=== PATIENT | female | born 1960 | race Caucasian/White ===

== ENCOUNTER 2017-11-11 11:01 | Inpatient (IN) | payer MEDICAID, SELFPAY ==
[2017-11-11] MEDS: CitaloPRAM (CeleXA) 20 MG TAB PO (09:00)
[2017-11-11 11:33] LABS: BASO % 0.7 % (0.0-1.0); EOS # 0.1 10^3/uL (0.0-0.50); EOS % 1.7 % (0.0-3.0); HEMATOCRIT 44.2 % (36.0-47.0); IMMATURE GRANULOCYTE % 0.2 % (0-3.0); LYMPH # 2.4 10^3/uL (1.5-4.5); LYMPH % 40.9 % (24.0-44.0); MEAN CORPUSCULAR HEMOGLOBIN 33.6 pg (27.0-33.0); MEAN CORPUSCULAR HGB CONC 33.9 g/dl (32.0-36.5); MEAN CORPUSCULAR VOLUME 98.9 fl (80.0-96.0); MONO # 0.5 10^3/uL (0.0-0.8); MONO % 7.8 % (0.0-5.0); NEUTROPHILS # 2.9 10^3/uL (1.8-7.7); NEUTROPHILS % 48.7 % (36.0-66.0); PLATELET COUNT, AUTOMATED 255 10^3/uL (150-450); RED BLOOD COUNT 4.47 10^6/uL (4.00-5.40); RED CELL DISTRIBUTION WIDTH 11.9 % (11.5-14.5); WHITE BLOOD COUNT 5.9 10^3/uL (4.0-10.0)
[2017-11-11 12:05] LABS: ALBUMIN 3.6 GM/DL (3.2-5.2); ALBUMIN/GLOBULIN RATIO 1.06 (1.00-1.93); ALKALINE PHOSPHATASE 90 U/L (45-117); ALT/SGPT 17 U/L (12-78); ANION GAP 6 MEQ/L (8-16); AST/SGOT 19 U/L (7-37); BILIRUBIN,DIRECT 0.2 MG/DL (0.0-0.2); BILIRUBIN,TOTAL 0.7 MG/DL (0.2-1.0); BLOOD UREA NITROGEN 18 MG/DL (7-18); CALCIUM LEVEL 8.9 MG/DL (8.5-10.1); CARBON DIOXIDE LEVEL 28 MEQ/L (21-32); CHLORIDE LEVEL 110 MEQ/L (98-107); CREATININE FOR GFR 0.72 MG/DL (0.55-1.30); ETHYL ALCOHOL (ETHANOL) < 0.003 % (0.000-0.010); GLOMERULAR FILTRATION RATE > 60.0 (>51); GLUCOSE, FASTING 90 MG/DL (70-100); POTASSIUM SERUM 3.8 MEQ/L (3.5-5.1); SALICYLATE LEVEL 3.2 MG/DL (5.0-30.0); SODIUM LEVEL 144 MEQ/L (136-145)
[2017-11-11 12:10] LABS: ACETAMINOPHEN LEVEL < 2.0 UG/ML (10.0-30.0)
[2017-11-11] MEDS ORDERED: OLANZapine 5 MG TAB PO (16:45)
[2017-11-11] MEDS ORDERED: MAALOX 30 ML SUSP *UDC PO (16:45)
[2017-11-11] MEDS ORDERED: MOM 30ML SUSPENSION UDC PO (16:45)
[2017-11-11] MEDS: ACETAMINOPHEN TAB 650MG DOSE (2X325MG) PO (17:20)
[2017-11-11 17:34] LABS: APPEARANCE, URINE HAZY (CLEAR); BACTERIA, URINE AUTO 3+ (NEGATIVE); BILIRUBIN, URINE AUTO NEGATIVE (NEGATIVE); BLOOD, URINE BLOOD 1+ (NEGATIVE); COLOR, URINE YELLOW (YELLOW); GLUCOSE, URINE (UA) AUTO NEGATIVE (NEGATIVE); KETONE, URINE AUTO NEGATIVE (NEGATIVE); LEUKOCYTE ESTERASE, URINE AUTO 3+ (NEGATIVE); MUCUS, URINE SMALL (NEGATIVE); NITRITE, URINE AUTO POSITIVE (NEGATIVE); PROTEIN, URINE AUTO NEGATIVE (NEGATIVE); RBC, URINE AUTO 5 /HPF (0-3); SPECIFIC GRAVITY URINE AUTO 1.023 (1.002-1.035); SQUAMOUS EPITHELIAL CELL UR AU 2 /HPF (0-6); WBC, URINE AUTO 15 /HPF (0-3)
[2017-11-11 17:53] LABS: AMPHETAMINES LEVEL URINE NEGATIVE (NEGATIVE); BARBITURATES URINE NEGATIVE (NEGATIVE); BENZODIAZEPINES URINE NEGATIVE (NEGATIVE); CANNABINOIDS URINE NEGATIVE (NEGATIVE); COCAINE METABOLITE URINE NEGATIVE (NEGATIVE); METHADONE URINE NEGATIVE (NEGATIVE); OPIATES URINE NEGATIVE (NEGATIVE); PHENCYCLIDINE URINE NEGATIVE (NEGATIVE)
[2017-11-12] MEDS: CitaloPRAM (CeleXA) 20 MG TAB PO (09:02)
[2017-11-12] MEDS: NICOTINE 14 MG/24 HR TRANSDERMAL TD (09:02)
[2017-11-12] MEDS: MULTIVITAMINS/MINERALS THERAP 1 TAB PO (10:51)
[2017-11-12 10:54] LABS: HEMATOCRIT 40.2 % (36.0-47.0); HEMOGLOBIN 13.9 g/dl (12.0-16.0); MEAN CORPUSCULAR HEMOGLOBIN 34.1 pg (27.0-33.0); MEAN CORPUSCULAR HGB CONC 34.6 g/dl (32.0-36.5); MEAN CORPUSCULAR VOLUME 98.5 fl (80.0-96.0); PLATELET COUNT, AUTOMATED 251 10^3/uL (150-450); RED BLOOD COUNT 4.08 10^6/uL (4.00-5.40); RED CELL DISTRIBUTION WIDTH 11.9 % (11.5-14.5); WHITE BLOOD COUNT 7.2 10^3/uL (4.0-10.0)
[2017-11-12 11:21] LABS: FERRITIN 89 NG/ML (8-252); IRON (FE) 107 UG/DL (50-170); PERCENT SATURATION 34.2 % (13.2-45.0); TOTAL IRON BINDING CAPACITY 313 UG/DL (250-450)
[2017-11-12 11:22] LABS: ESTIMATED AVERAGE GLUCOSE 103 MG/DL (60-110); HEMOGLOBIN A1c 5.2 %
[2017-11-12 11:28] LABS: TOTAL 25(OH) VITAMIN D 14.1 NG/ML (30.0-100.0); VITAMIN B12 LEVEL 118 PG/ML (247-911)
[2017-11-12 11:29] LABS: FOLATE 18.7 NG/ML (>5.4)
[2017-11-12] MEDS: VITAMIN D 50,000 UNITS CAPSULE (ERGOCALCIFEROL 1.25MG) PO (14:13)
[2017-11-12] MEDS: CYANOCOBALAMIN 1,000 MCG/ML VIAL (J3420) IM (14:18)
[2017-11-12] MEDS: LIDOCAINE 5% (LIDODERM) PATCH TD (14:43)
[2017-11-12 19:05] LABS: KETONE, URINE AUTO RFX NEGATIVE (NEGATIVE); MUCUS, URINE RFX SMALL (NEGATIVE); RBC, URINE AUTO RFX 4 /HPF (0-3); SPECIFIC GRAVITY UR AUTO RFX 1.025 (1.002-1.035); SQUAM EPITHELIAL CELL UR AURFX 8 /HPF (0-6)
[2017-11-12 19:12] LABS: LEUKOCYTE ESTERASE UR AUTO RFX 3+ (NEGATIVE); NITRITE, URINE AUTO RFX POSITIVE (NEGATIVE); WBC, URINE AUTO RFX 77 /HPF (0-3)
[2017-11-12] MEDS: **NOTE PATIENT COMMENT** MISC XX (21:00)
[2017-11-12] MEDS: diphenhydrAMINE 25 MG CAP PO (22:32)
[2017-11-13] MEDS: CitaloPRAM (CeleXA) 20 MG TAB PO ×2 (09:00→21:28)
[2017-11-13] MEDS: CYANOCOBALAMIN 500 MCG TAB PO (09:55)
[2017-11-13] MEDS: LIDOCAINE 5% (LIDODERM) PATCH TD (09:56)
[2017-11-13] MEDS: NICOTINE 14 MG/24 HR TRANSDERMAL TD (09:56)
[2017-11-13] MEDS: MULTIVITAMINS/MINERALS THERAP 1 TAB PO (09:56)
[2017-11-13] MEDS: **NOTE PATIENT COMMENT** MISC XX (21:29)
[2017-11-14] MEDS: CYANOCOBALAMIN 500 MCG TAB PO (09:17)
[2017-11-14] MEDS: NICOTINE 14 MG/24 HR TRANSDERMAL TD (09:17)
[2017-11-14] MEDS: MULTIVITAMINS/MINERALS THERAP 1 TAB PO (09:17)
[2017-11-14] MEDS: LIDOCAINE 5% (LIDODERM) PATCH TD (09:17)
[2017-11-14] MEDS: CitaloPRAM (CeleXA) 10 MG TABLET PO (17:25)
[2017-11-14] MEDS ORDERED: CitaloPRAM (CeleXA) 10 MG TABLET PO (21:00)
[2017-11-14] MEDS: **NOTE PATIENT COMMENT** MISC XX (21:25)
[2017-11-15] MEDS: ACETAMINOPHEN TAB 650MG DOSE (2X325MG) PO (06:57)
[2017-11-15] MEDS: LIDOCAINE 5% (LIDODERM) PATCH TD (08:35)
[2017-11-15] MEDS: CYANOCOBALAMIN 500 MCG TAB PO (08:36)
[2017-11-15] MEDS: NICOTINE 14 MG/24 HR TRANSDERMAL TD (08:36)
[2017-11-15] MEDS: MULTIVITAMINS/MINERALS THERAP 1 TAB PO (08:36)
[2017-11-15] MEDS: BACTRIM 160MG/800MG DS TAB PO ×2 (08:36→22:00)
[2017-11-15] MEDS: CitaloPRAM (CeleXA) 10 MG TABLET PO (08:36)
[2017-11-15] MEDS: **NOTE PATIENT COMMENT** MISC XX (21:00)
[2017-11-16] MEDS: diphenhydrAMINE 25 MG CAP PO ×2 (00:42→01:19)
[2017-11-16] MEDS: MULTIVITAMINS/MINERALS THERAP 1 TAB PO (08:31)
[2017-11-16] MEDS: CitaloPRAM (CeleXA) 10 MG TABLET PO (08:31)
[2017-11-16] MEDS: BACTRIM 160MG/800MG DS TAB PO ×2 (08:31→21:51)
[2017-11-16] MEDS: LIDOCAINE 5% (LIDODERM) PATCH TD (08:31)
[2017-11-16] MEDS: NICOTINE 14 MG/24 HR TRANSDERMAL TD (08:31)
[2017-11-16] MEDS: CYANOCOBALAMIN 500 MCG TAB PO (08:31)
[2017-11-16] MEDS: **NOTE PATIENT COMMENT** MISC XX (21:53)
[2017-11-17] MEDS: MULTIVITAMINS/MINERALS THERAP 1 TAB PO (08:52)
[2017-11-17] MEDS: BACTRIM 160MG/800MG DS TAB PO ×2 (08:52→21:32)
[2017-11-17] MEDS: CitaloPRAM (CeleXA) 10 MG TABLET PO (08:52)
[2017-11-17] MEDS: NICOTINE 14 MG/24 HR TRANSDERMAL TD (08:52)
[2017-11-17] MEDS: LIDOCAINE 5% (LIDODERM) PATCH TD (08:52)
[2017-11-17] MEDS: CYANOCOBALAMIN 500 MCG TAB PO (08:52)
[2017-11-17] MEDS: **NOTE PATIENT COMMENT** MISC XX (21:31)
[2017-11-18] MEDS: NICOTINE 14 MG/24 HR TRANSDERMAL TD (08:55)
[2017-11-18] MEDS: LIDOCAINE 5% (LIDODERM) PATCH TD (08:56)
[2017-11-18] MEDS: BACTRIM 160MG/800MG DS TAB PO (08:57)
[2017-11-18] MEDS: CitaloPRAM (CeleXA) 10 MG TABLET PO (08:57)
[2017-11-18] MEDS: CYANOCOBALAMIN 500 MCG TAB PO (08:57)
[2017-11-18] MEDS: MULTIVITAMINS/MINERALS THERAP 1 TAB PO (08:57)
== END 2017-11-18 15:35 | disposition home or self-care (01) | DRG 751 ==
LOC: M ED 11:01 → M ED INP 16:37 → M PSY 18:52
DX: F33.2 Major depressive disorder, recurrent severe without psychotic features (principal); Z68.41 Body mass index [BMI] 40.0-44.9, adult; E66.9 Obesity, unspecified; F17.200 Nicotine dependence, unspecified, uncomplicated

== ENCOUNTER 2017-12-29 18:41 | Inpatient (IN) | payer OTHER, MEDICAID ==
[2017-12-29 19:19] LABS: HEMATOCRIT 42.2 % (36.0-47.0); HEMOGLOBIN 14.1 g/dl (12.0-15.5); MEAN CORPUSCULAR HEMOGLOBIN 33.6 pg (27.0-33.0); MEAN CORPUSCULAR HGB CONC 33.4 g/dl (32.0-36.5); MEAN CORPUSCULAR VOLUME 100.5 fl (80.0-96.0); PLATELET COUNT, AUTOMATED 326 10^3/uL (150-450); RED CELL DISTRIBUTION WIDTH 13.1 % (11.5-14.5); WHITE BLOOD COUNT 6.1 10^3/uL (4.0-10.0)
[2017-12-29 19:46] LABS: ALBUMIN 3.5 GM/DL (3.2-5.2); ALBUMIN/GLOBULIN RATIO 1.06 (1.00-1.93); ALKALINE PHOSPHATASE 83 U/L (45-117); ALT/SGPT 17 U/L (12-78); ANION GAP 9 MEQ/L (8-16); AST/SGOT 23 U/L (7-37); BILIRUBIN,DIRECT < 0.1 MG/DL (0.0-0.2); BILIRUBIN,TOTAL 0.3 MG/DL (0.2-1.0); BLOOD UREA NITROGEN 12 MG/DL (7-18); CALCIUM LEVEL 8.4 MG/DL (8.5-10.1); CARBON DIOXIDE LEVEL 22 MEQ/L (21-32); CHLORIDE LEVEL 110 MEQ/L (98-107); CREATININE FOR GFR 0.71 MG/DL (0.55-1.30); ETHYL ALCOHOL (ETHANOL) 0.186 % (0.000-0.010); GLOMERULAR FILTRATION RATE > 60.0 (>51); GLUCOSE, FASTING 86 MG/DL (70-100); SALICYLATE LEVEL 8.8 MG/DL (5.0-30.0); SODIUM LEVEL 141 MEQ/L (136-145); THYROID STIMULATING HORMONE 0.629 uIU/ML (0.358-3.740); TOTAL PROTEIN 6.8 GM/DL (6.4-8.2)
[2017-12-29 20:18] LABS: AMPHETAMINES LEVEL URINE NEGATIVE (NEGATIVE); BARBITURATES URINE NEGATIVE (NEGATIVE); BENZODIAZEPINES URINE NEGATIVE (NEGATIVE); CANNABINOIDS URINE NEGATIVE (NEGATIVE); COCAINE METABOLITE URINE NEGATIVE (NEGATIVE); METHADONE URINE NEGATIVE (NEGATIVE); OPIATES URINE NEGATIVE (NEGATIVE); PHENCYCLIDINE URINE NEGATIVE (NEGATIVE)
[2017-12-29 20:32] LABS: CPK CREATINE PHOSPHOKINASE 84 U/L (26-192)
[2017-12-30] MEDS: ACETAMINOPHEN 325 MG TAB PO
[2017-12-30] MEDS ORDERED: MOM 30ML SUSPENSION UDC PO (00:15)
[2017-12-30] MEDS ORDERED: MAALOX 30 ML SUSP *UDC PO (00:15)
[2017-12-30] MEDS ORDERED: traZODone 50 MG TAB PO (00:15)
[2017-12-30] MEDS: ACETAMINOPHEN TAB 650MG DOSE (2X325MG) PO ×2 (08:33→21:14)
[2017-12-30] MEDS ORDERED: NICOTINE 21MG/24HR 1 EA TRANSDERMAL TD (09:00)
[2017-12-30 10:34] LABS: VITAMIN B12 LEVEL 134 PG/ML (247-911)
[2017-12-30 10:34] LABS: FOLATE 15.5 NG/ML (>5.4)
[2017-12-30] MEDS: VITAMIN B COMPLEX/VIT C CAP PO (10:57)
[2017-12-30] MEDS: LIDOCAINE 5% (LIDODERM) PATCH TD (11:39)
[2017-12-30] MEDS: NICOTINE 14 MG/24 HR TRANSDERMAL TD (13:07)
[2017-12-30] MEDS: DULoxetine 30 MG CAP (CYMBALTA) PO (13:07)
[2017-12-30 16:56] LABS: KETONE, URINE AUTO RFX NEGATIVE (NEGATIVE); MUCUS, URINE RFX SMALL (NEGATIVE); NITRITE, URINE AUTO RFX NEGATIVE (NEGATIVE); RBC, URINE AUTO RFX 5 /HPF (0-3); SPECIFIC GRAVITY UR AUTO RFX 1.021 (1.002-1.035); SQUAM EPITHELIAL CELL UR AURFX 2 /HPF (0-6)
[2017-12-30 16:58] LABS: LEUKOCYTE ESTERASE UR AUTO RFX 3+ (NEGATIVE); WBC, URINE AUTO RFX 19 /HPF (0-3)
[2017-12-30] MEDS: **NOTE PATIENT COMMENT** MISC XX (21:12)
[2017-12-30] MEDS: MIRTAZAPINE 15 MG TAB PO (21:13)
[2017-12-31] MEDS: VITAMIN D 50,000 UNITS CAPSULE (ERGOCALCIFEROL 1.25MG) PO (09:05)
[2017-12-31] MEDS: NICOTINE 14 MG/24 HR TRANSDERMAL TD (09:05)
[2017-12-31] MEDS: DULoxetine 30 MG CAP (CYMBALTA) PO (09:05)
[2017-12-31] MEDS: VITAMIN B COMPLEX/VIT C CAP PO (09:05)
[2017-12-31] MEDS: LIDOCAINE 5% (LIDODERM) PATCH TD (09:06)
[2017-12-31] MEDS: ACETAMINOPHEN TAB 650MG DOSE (2X325MG) PO (17:45)
[2017-12-31] MEDS: rOPINIRole 1MG TAB PO (20:46)
[2017-12-31] MEDS: MIRTAZAPINE 15 MG TAB PO (20:46)
[2017-12-31] MEDS: **NOTE PATIENT COMMENT** MISC XX (20:47)
[2018-01-01] MEDS: NICOTINE 14 MG/24 HR TRANSDERMAL TD (08:24)
[2018-01-01] MEDS: VENLAFAXINE **XR** 75MG CAPSULE PO (08:24)
[2018-01-01] MEDS: VITAMIN B COMPLEX/VIT C CAP PO (08:24)
[2018-01-01] MEDS: ACETAMINOPHEN TAB 650MG DOSE (2X325MG) PO ×2 (08:25→17:44)
[2018-01-01] MEDS: **NOTE PATIENT COMMENT** MISC XX (21:00)
[2018-01-01] MEDS: MIRTAZAPINE 7.5MG PER 1/2 TABLET PO (21:35)
[2018-01-01] MEDS: rOPINIRole 1MG TAB PO (21:35)
[2018-01-02] MEDS: VITAMIN B COMPLEX/VIT C CAP PO (09:03)
[2018-01-02] MEDS: NICOTINE 14 MG/24 HR TRANSDERMAL TD (09:03)
[2018-01-02] MEDS: VENLAFAXINE **XR** 75MG CAPSULE PO (09:03)
[2018-01-02] MEDS: ACETAMINOPHEN TAB 650MG DOSE (2X325MG) PO ×2 (09:04→21:00)
[2018-01-02] MEDS: CYANOCOBALAMIN 1,000 MCG/ML VIAL (J3420) IM (11:21)
[2018-01-02] MEDS: rOPINIRole 1MG TAB PO (20:58)
[2018-01-02] MEDS: MIRTAZAPINE 7.5MG PER 1/2 TABLET PO (20:58)
[2018-01-02] MEDS: **NOTE PATIENT COMMENT** MISC XX (21:00)
[2018-01-03] MEDS: ACETAMINOPHEN TAB 650MG DOSE (2X325MG) PO (07:40)
[2018-01-03] MEDS: VITAMIN B COMPLEX/VIT C CAP PO (09:30)
[2018-01-03] MEDS: NICOTINE 14 MG/24 HR TRANSDERMAL TD (09:30)
[2018-01-03] MEDS: VENLAFAXINE **XR** 75MG CAPSULE PO (09:31)
== END 2018-01-03 12:20 | disposition home or self-care (01) | DRG 755 ==
LOC: M ED INP 12-30 00:05 → M ED 18:41 → M PSY 12-30 01:28
DX: F43.10 Post-traumatic stress disorder, unspecified (principal); F33.1 Major depressive disorder, recurrent, moderate; Z68.41 Body mass index [BMI] 40.0-44.9, adult; D53.8 Other specified nutritional anemias; F41.1 Generalized anxiety disorder; Z79.899 Other long term (current) drug therapy; E66.9 Obesity, unspecified; M54.5 Low back pain; F17.200 Nicotine dependence, unspecified, uncomplicated; M51.37 Other intervertebral disc degeneration, lumbosacral region

== ENCOUNTER → 2018-02-26 | Outpatient (REF) | payer OTHER, MEDICAID ==
[2018-02-26 18:33] LABS: TOTAL 25(OH) VITAMIN D 33.2 NG/ML (30.0-100.0); VITAMIN B12 LEVEL 158 PG/ML (247-911)
[2018-02-26 18:34] LABS: FOLATE 15.4 NG/ML (>5.4)
[2018-02-26 18:35] LABS: CHOLESTEROL LEVEL 207 MG/DL (<200); CHOLESTEROL RISK RATIO 4.058 (<5); FERRITIN 97 NG/ML (8-252); HDL CHOLESTEROL 51 MG/DL (>40); IRON (FE) 98 UG/DL (50-170); LDL CHOLESTEROL 129.6 MG/DL (<100); NON-HDL-C 156 MG/DL; TRIGLYCERIDES LEVEL 132 MG/DL (<150)
[2018-02-26 19:12] LABS: HEPATITIS C VIRUS ABY INDEX < 0.0 INDEX (<0.8)
[2018-02-26 19:13] LABS: HIV 1&2 SCREEN CENTAUR NEGATIVE (NEGATIVE)
== END ==
LOC: M LAB REF 16:52
DX: Z11.4 Encounter for screening for human immunodeficiency virus [HIV] (principal)

== ENCOUNTER 2018-05-28 00:25 | Emergency (ER) | payer OTHER, MEDICAID ==
[2018-05-28] MEDS: ACETAMINOPHEN TAB 650MG DOSE (2X325MG) PO (01:35)
[2018-05-28 01:39] LABS: BASO % 0.2 % (0.0-1.0); EOS % 0.3 % (0.0-3.0); HEMATOCRIT 38.2 % (36.0-47.0); IMMATURE GRANULOCYTE % 0.5 % (0-3.0); LYMPH # 1.5 10^3/uL (1.5-4.5); LYMPH % 11.6 % (24.0-44.0); MEAN CORPUSCULAR HEMOGLOBIN 34.1 pg (27.0-33.0); MEAN CORPUSCULAR VOLUME 100.3 fl (80.0-96.0); MONO # 0.7 10^3/uL (0.0-0.8); MONO % 5.8 % (0.0-5.0); NEUTROPHILS # 10.4 10^3/uL (1.8-7.7); NEUTROPHILS % 81.6 % (36.0-66.0); PLATELET COUNT, AUTOMATED 247 10^3/uL (150-450); RED BLOOD COUNT 3.81 10^6/uL (4.00-5.40); RED CELL DISTRIBUTION WIDTH 13.5 % (11.5-14.5); WHITE BLOOD COUNT 12.8 10^3/uL (4.0-10.0)
[2018-05-28] MEDS: IPRATROPIUM 0.5MG/ALBUTEROL 2.5MG INH SOL UD 3ML (DUONEB)(J7620) NEB (01:54)
[2018-05-28 01:55] LABS: ALBUMIN/GLOBULIN RATIO 0.97 (1.00-1.93); ALKALINE PHOSPHATASE 98 U/L (45-117); ALT/SGPT 13 U/L (12-78); ANION GAP 7 MEQ/L (8-16); AST/SGOT 14 U/L (7-37); BILIRUBIN,DIRECT 0.2 MG/DL (0.0-0.2); BILIRUBIN,TOTAL 0.5 MG/DL (0.2-1.0); BLOOD UREA NITROGEN 18 MG/DL (7-18); CALCIUM LEVEL 7.9 MG/DL (8.5-10.1); CARBON DIOXIDE LEVEL 25 MEQ/L (21-32); CHLORIDE LEVEL 108 MEQ/L (98-107); GLOMERULAR FILTRATION RATE > 60.0 (>51); GLUCOSE, FASTING 123 MG/DL (70-100); POTASSIUM SERUM 3.4 MEQ/L (3.5-5.1); SODIUM LEVEL 140 MEQ/L (136-145); TOTAL PROTEIN 6.1 GM/DL (6.4-8.2)
[2018-05-28 01:57] LABS: LACTIC ACID SEPSIS PROTOCOL 0.9 MMOL/L (0.4-2.0)
[2018-05-28] MEDS: NS 1,000 ML IV (02:02)
[2018-05-28] MEDS: CLINDAMYCIN 600 MG in APPROPRIATE DILUENT 1 EA IV (04:38)
== END 2018-05-28 05:33 | disposition home or self-care (01) ==
LOC: M ED 00:25
DX: L03.111 Cellulitis of right axilla (principal); Z72.0 Tobacco use; Z79.899 Other long term (current) drug therapy
CPT/HCPCS: 94640

== ENCOUNTER 2018-05-30 16:34 | Emergency (ER) | payer OTHER, MEDICAID ==
[2018-05-30 17:29] LABS: BASO # 0.1 10^3/uL (0.0-0.2); BASO % 0.6 % (0.0-1.0); EOS # 0.2 10^3/uL (0.0-0.50); EOS % 2.6 % (0.0-3.0); IMMATURE GRANULOCYTE % 0.6 % (0-3.0); LYMPH # 1.1 10^3/uL (1.5-4.5); LYMPH % 11.9 % (24.0-44.0); MEAN CORPUSCULAR HEMOGLOBIN 33.9 pg (27.0-33.0); MEAN CORPUSCULAR HGB CONC 33.3 g/dl (32.0-36.5); MEAN CORPUSCULAR VOLUME 101.8 fl (80.0-96.0); MONO # 0.5 10^3/uL (0.0-0.8); MONO % 5.6 % (0.0-5.0); NEUTROPHILS % 78.7 % (36.0-66.0); PLATELET COUNT, AUTOMATED 317 10^3/uL (150-450); RED BLOOD COUNT 3.83 10^6/uL (4.00-5.40); RED CELL DISTRIBUTION WIDTH 13.9 % (11.5-14.5); WHITE BLOOD COUNT 8.9 10^3/uL (4.0-10.0)
[2018-05-30] MEDS: LIDOCAINE 2% W/EPIN INJ 20ML **PRES FREE INJ (17:45)
[2018-05-30 17:50] LABS: ERYTHROCYTE SEDIMENTATION RATE 82 mm/hr (0-30)
[2018-05-30 18:02] LABS: ANION GAP 6 MEQ/L (8-16); BLOOD UREA NITROGEN 17 MG/DL (7-18); CALCIUM LEVEL 8.7 MG/DL (8.5-10.1); CARBON DIOXIDE LEVEL 25 MEQ/L (21-32); CHLORIDE LEVEL 110 MEQ/L (98-107); CREATININE FOR GFR 0.63 MG/DL (0.55-1.30); GLOMERULAR FILTRATION RATE > 60.0 (>51); GLUCOSE, FASTING 88 MG/DL (70-100); POTASSIUM SERUM 5.2 MEQ/L (3.5-5.1); SODIUM LEVEL 141 MEQ/L (136-145)
[2018-05-30 18:02] LABS: LACTIC ACID SEPSIS PROTOCOL 1.9 MMOL/L (0.4-2.0)
== END 2018-05-30 18:55 | disposition home or self-care (01) ==
LOC: M ED 16:34
DX: L03.111 Cellulitis of right axilla (principal); L02.411 Cutaneous abscess of right axilla; J45.909 Unspecified asthma, uncomplicated; F32.9 Major depressive disorder, single episode, unspecified; Z98.84 Bariatric surgery status; F17.210 Nicotine dependence, cigarettes, uncomplicated; Z79.899 Other long term (current) drug therapy; Z79.2 Long term (current) use of antibiotics
CPT/HCPCS: 83605

== ENCOUNTER 2019-06-26 21:20 | Emergency (ER) | payer OTHER ==
[~2019-06-26] VITALS: Ht 172.7 cm; Wt 127.3 kg
[~2019-06-26 21:20] MED LIST: ALBU1.25 INH; ALBU17IN2 INH; CELE10TA PO; CLEO300C2 PO; CLIN150C14 PO; CYAN100049 PO; DRIS50003 PO; FERR1TAB8 PO; IBUPOTC PO; IRON18TA PO; LIDO5TD TD; MIRT15TA3 PO; NICO21DI3 TD; NIFE30TA50 PO; PROAAER10 INH; REQU1TAB16 PO; SULF1TAB93 PO; VENL75CA47 PO; VITA500T17 PO; VITATAB11 PO; VITATAB73 PO; VITMTA PO; ZITHTAB PO
[2019-06-26] MEDS ORDERED: GABA-843 PO (21:28)
[2019-06-26] MEDS ORDERED: EFFE75CA2 PO (21:28)
[2019-06-26] MEDS ORDERED: NAPR-885 PO (21:28)
[2019-06-26] MEDS ORDERED: GABA-1171 PO (21:28)
[2019-06-26] MEDS ORDERED: ABIL1TAB11 PO (21:28)
[2019-06-26] MEDS ORDERED: TRIMETHOPRIM/SULFAMETHOXAZOLE 600 MG in D5W 500 ML IV ONE (22:00)
[2019-06-26 22:28] LABS: HEMATOCRIT 41.1 % (36.0-47.0); HEMOGLOBIN 13.5 g/dl (12.0-15.5); MEAN CORPUSCULAR HEMOGLOBIN 32.2 pg (27.0-33.0); MEAN CORPUSCULAR HGB CONC 32.8 g/dl (32.0-36.5); MEAN CORPUSCULAR VOLUME 98.1 fl (80.0-96.0); PLATELET COUNT, AUTOMATED 317 10^3/uL (150-450); RED BLOOD COUNT 4.19 10^6/uL (4.00-5.40); WHITE BLOOD COUNT 12.9 10^3/uL (4.0-10.0)
[2019-06-26] MEDS: NS 1,000 ML IV SCH (22:33)
[2019-06-26 22:39] LABS: ALT/SGPT 20 U/L (12-78); BILIRUBIN,DIRECT < 0.1 MG/DL (0.0-0.2); BILIRUBIN,TOTAL 0.3 MG/DL (0.2-1.0); BLOOD UREA NITROGEN 22 MG/DL (7-18); CALCIUM LEVEL 8.4 MG/DL (8.5-10.1); CARBON DIOXIDE LEVEL 22 MEQ/L (21-32); CHLORIDE LEVEL 105 MEQ/L (98-107); CREATININE FOR GFR 0.63 MG/DL (0.55-1.30); GLOMERULAR FILTRATION RATE > 60.0 (>51); GLUCOSE, FASTING 90 MG/DL (70-100); POTASSIUM SERUM 3.9 MEQ/L (3.5-5.1); SODIUM LEVEL 139 MEQ/L (136-145); TOTAL PROTEIN 6.5 GM/DL (6.4-8.2)
[2019-06-26] MEDS ORDERED: ALBUTEROL SULFATE 2.5 MG/0.5 ML INH NEB SOLN NEB ONE (22:45)
[2019-06-26] MEDS ORDERED: BACT800T5 PO (23:05)
[2019-06-26] MEDS ORDERED: BACTRIM 160MG/800MG DS TAB PO ONE (23:15)
[2019-06-27] MEDS ORDERED: NS 500 ML IV ONE (01:00)
[2019-06-27] MEDS ORDERED: ACETAMINOPHEN 500 MG TAB PO ONE (01:45)
[2019-06-27] MEDS: NS 1,000 ML IV SCH (02:11)
[2019-06-27 02:55] VITALS: BP 129/84
[2019-06-28] MEDS ORDERED: SULF1TAB93 (21:24)
[2019-06-28] MEDS ORDERED: D 50CAP3 PO (23:01)
[2019-06-28] MEDS ORDERED: B COTAB3 PO (23:01)
[2019-06-28] MEDS ORDERED: PROAAER10 INH (23:01)
[2019-06-28] MEDS ORDERED: REME15TA PO (23:01)
[2019-06-28] MEDS ORDERED: ARIP1TAB PO (23:01)
[2019-06-28] MEDS ORDERED: ROPI1TAB PO (23:04)
== END 2019-06-27 03:06 | disposition home or self-care (01) ==
LOC: M ED 21:20
DX: L03.114 Cellulitis of left upper limb (principal); I10 Essential (primary) hypertension; J45.909 Unspecified asthma, uncomplicated; Z98.84 Bariatric surgery status; F17.200 Nicotine dependence, unspecified, uncomplicated; Z79.899 Other long term (current) drug therapy

== ENCOUNTER 2019-06-28 21:09 | Inpatient (IN) | payer OTHER ==
[~2019-06-28] VITALS: Ht 172.7 cm; Wt 127.3 kg
[~2019-06-28 21:09] MED LIST changes: +ABIL1TAB11 PO; +BACT800T5 PO; +EFFE75CA2 PO; +GABA-1171 PO; +GABA-843 PO; +NAPR-885 PO
[2019-06-28] MEDS ORDERED: SULF1TAB93 (21:24)
[2019-06-28 22:03] LABS: BASO # 0.1 10^3/uL (0.0-0.2); BASO % 0.4 % (0.0-1.0); EOS # 0.1 10^3/uL (0.0-0.5); EOS % 1.2 % (0.0-3.0); HEMOGLOBIN 13.1 g/dl (12.0-15.5); LYMPH # 1.7 10^3/uL (1.5-5.0); LYMPH % 14.7 % (24.0-44.0); MEAN CORPUSCULAR HEMOGLOBIN 32.2 pg (27.0-33.0); MEAN CORPUSCULAR VOLUME 100.7 fl (80.0-96.0); MONO # 0.8 10^3/uL (0.0-0.8); MONO % 6.9 % (0.0-5.0); NEUTROPHILS # 8.6 10^3/uL (1.5-8.5); NEUTROPHILS % 76.4 % (36.0-66.0); PLATELET COUNT, AUTOMATED 324 10^3/uL (150-450); RED BLOOD COUNT 4.07 10^6/uL (4.00-5.40); WHITE BLOOD COUNT 11.2 10^3/uL (4.0-10.0)
[2019-06-28] MEDS ORDERED: NS 1,000 ML IV ONE ×2 (22:15→23:15)
[2019-06-28] MEDS ORDERED: IPRATROPIUM 0.5MG/ALBUTEROL 2.5MG INH SOL UD 3ML (DUONEB)(J7620) NEB ONE (22:15)
[2019-06-28] MEDS ORDERED: CEFTAROLINE FOSAMIL 600 MG in D5W MINI-BAG PLUS 50 ML IV ONE (22:15)
[2019-06-28 22:22] LABS: ALBUMIN 2.8 GM/DL (3.2-5.2); ALT/SGPT 31 U/L (12-78); BILIRUBIN,DIRECT < 0.1 MG/DL (0.0-0.2); BILIRUBIN,TOTAL 0.4 MG/DL (0.2-1.0); BLOOD UREA NITROGEN 19 MG/DL (7-18); CALCIUM LEVEL 8.6 MG/DL (8.5-10.1); CARBON DIOXIDE LEVEL 30 MEQ/L (21-32); CHLORIDE LEVEL 102 MEQ/L (98-107); CREATININE FOR GFR 0.63 MG/DL (0.55-1.30); GLOMERULAR FILTRATION RATE > 60.0 (>51); GLUCOSE, FASTING 87 MG/DL (70-100); POTASSIUM SERUM 3.8 MEQ/L (3.5-5.1); SODIUM LEVEL 138 MEQ/L (136-145); TOTAL PROTEIN 6.7 GM/DL (6.4-8.2)
[2019-06-28] MEDS ORDERED: PROAAER10 INH (23:01)
[2019-06-28] MEDS ORDERED: ARIP1TAB PO (23:01)
[2019-06-28] MEDS ORDERED: B COTAB3 PO (23:01)
[2019-06-28] MEDS ORDERED: D 50CAP3 PO (23:01)
[2019-06-28] MEDS ORDERED: REME15TA PO (23:01)
[2019-06-28] MEDS ORDERED: ROPI1TAB PO (23:04)
[2019-06-28] MEDS ORDERED: LIDOCAINE 1% MDV 20ML VIAL SC ONE (23:30)
--- NOTE | 2019-06-28 23:54 | REPVR ---
PROCEDURE INFORMATION: Exam: US Left Non-Vascular Joint or Other Extremity Structure, Limited Upper Extremity Exam date and time: 06/28/2019 11:12 PM Clinical history: 58 years old, female; Cellulitis; Elbow; Left; Additional info: Abscess left forearm TECHNIQUE: Imaging protocol: Left US Non-Vascular Joint or Other Extremity Structure. Limited exam of the upper extremity. COMPARISON: No relevant prior studies available. FINDINGS: Soft tissues: Scanning in the area of interest demonstrates subcutaneous edema. There is also a complex subcutaneous area measuring 4.2 x 2.0 x 4.3 cm consistent with abscess. IMPRESSION: Subcutaneous edema about the area of interest with associated complex collection consistent with abscess measuring 4.2 x 2.0 x 4.3 cm. Electronically signed by: Chan Hendricks On 06/28/2019 23:53:46 PM
[2019-06-29] MEDS ORDERED: MAALOX 30 ML SUSP *UDC PO PRN (00:15)
[2019-06-29] MEDS ORDERED: NAPROXEN 250 MG TAB PO PRN (00:15)
[2019-06-29] MEDS ORDERED: MOM 30ML SUSPENSION UDC PO PRN (00:15)
[2019-06-29] MEDS ORDERED: ACETAMINOPHEN TAB 650MG DOSE (2X325MG) PO PRN (00:15)
--- NOTE | 2019-06-29 00:23 | HPEPDOC ---
General Date of Admission 06/29/19 Date of Service: Jun 29, 2019 Chief Complaint The patient is a 58-year-old female admitted with a reason for visit of Recheck. Source: Patient Exam Limitations: No limitations Timing/Duration: Other Severity: Moderate (few days) Associated Symptoms: Rash, Other (, redness and rash, left arm) History of Present Illness This is 58 years old white female with past medical history of obesity, vitamin B12 deficiency, history of iron deficiency, history of substance use disorder, chronic lower back pain, depression, anxiety, COPD, hypertension, vitamin D deficiency was seen in ED 2 days ago with the diagnosis of cellulitis, left lower arm was given IV antibiotics and was discharged home on by mouth antibiotic, but she never got the prescription filled out, came back again with a cellulitis is getting worse and has a reddened area at the left forearm with possible surrounding edema. The patient being admitted with a worsening cellulitis of left upper extremity. Small abscess was drained in ED by the ED provider and dressing applied Home Medications Scheduled Aripiprazole (Aripiprazole) 10 Mg Tablet, 10 MG PO DAILY, (Reported) Cholecalciferol (Vitamin D3) (Vitamin D3) 5,000 Unit Capsule, 5,000 UNIT PO DAILY, (Reported) Gabapentin (Gabapentin) 100 Mg Capsule, 100 MG PO BID, (Reported) TAKES AT 0900 AND 1400 Gabapentin (Gabapentin) 300 Mg Capsule, 300 MG PO QHS, (Reported) Mirtazapine (Remeron) 15 Mg Tablet, 15 MG PO QHS, (Reported) Multivitamins (Thera M Plus Tablet) 1 Tab Tab, 1 TAB PO DAILY, (Reported) Nifedipine (Nifedipine ER) 30 Mg Tab, 30 MG PO DAILY, (Reported) Ropinirole HCl (Ropinirole HCl) 1 Mg Tablet, 1 MG PO QHS, (Reported) Venlafaxine HCl (Effexor Xr) 75 Mg Cap.er.24h, 75 MG PO DAILY, (Reported) Vitamin B Complex (Vitamin B Complex) 1 Each Tablet, 1 TAB PO DAILY, (Reported) Scheduled PRN Albuterol Sulfate (Proair Hfa) 8.5 Gm Hfa.aer.ad, 2 PUFF INH Q2H PRN for SOB/COUGH, (Reported) Naproxen (Naproxen) 500 Mg Tablet, 500 MG PO BID PRN for PAIN, (Reported) Allergies Coded Allergies: No Known Allergies (Verified , 05/28/18) Past Medical History Medical History obesity, vitamin B12 deficiency, history of iron deficiency, history of substance use disorder, chronic lower back pain, depression, anxiety, COPD, hypertension, vitamin D deficiency Surgical History Gastric bypass surgery, cholecystectomy, hernia repair and Family History Significant Family History: No pertinent family hx Social History * Smoker: current smoker Alcohol: occationally Drugs: denies A-FIB/CHADSVASC A-FIB History Current/History of A-Fib/PAF?: No Review of Systems Constitutional: Denies: Chills, Fever, Malaise, Night Sweats, Weakness, Fatigue, Weight Loss, Lethargy, Other Eyes: Denies: Pain, Vision change, Conjunctivae inflammation, Eyelid inflammation, Redness, Other ENT: Denies: Head Aches, Ear Pain, Dysphagia, Sinus Congestion, Post Nasal Drip, Sore Throat, Epistaxis, Other Symptoms Skin: Denies: Rash, Lesions, Jaundice, Bruising, Itching, Dry, Breakdown, Nail Changes, Other Pulmonary: Denies: Dyspnea, Cough, Pleuritic Chest Pain, Other Symptoms Cardiovascular: Denies: Chest Pain, Palpitations, Orthopnea, Paroxysmal Noc. Dyspnea, Edema, Lt Headedness, Other Symptoms Gastrointestinal: Denies: Nausea, Vomiting, Abdominal Pain, Diarrhea, Constipation, Melena, Hematochezia, Other Symptoms Genitourinary: Denies: Dysuria, Frequency, Incontinence, Hematuria, Retention, Other Symptoms Hematologic: Denies: Bruising, Bleeding Excessively, Petecchia, Purpura, Enlarged Lymph Nodes, Other Hematologic Endocrine: Denies: Polydipsia, Polyphagia, Polyuria, Heat Intolerance, Cold Intolerance, Other Endocrine Sx Musculoskeletal: Reports: Other Symptoms (, left arm redness, swelling on the present flexor side with the dressing on); Denies: Neck Pain, Back Pain, Shoulder Pain, Arm Pain, Hand Pain, Leg Pain, Foot Pain, Joint Pain, Muscle Pain, Spasms Neurological: Denies: Weakness, Numbness, Incoordination, Change in speech, Confusion, Seizures, Other Symptoms Psych: Denies: Mood Normal, Anxiety, Depression, Memory Issues, Thoughts of Se lf Harm, Anger, Thoughts of Harming Other, Other Psych Physical Examination General Exam: Positive: Alert, No Acute Distress Eye Exam: Positive: PERRLA, Conjunctiva & lids normal ENT Exam: Positive: Atraumatic, Mucous membr. moist/pink Neck Exam: Positive: Supple Chest Exam: Positive: Clear to auscultation, Normal air movement Heart Exam: Positive: Rate Normal, Normal S1, Normal S2 Abdomen Exam: Positive: Normal bowel sounds Extremity Exam: Positive: Normal pulses Skin Exam: Positive: Other skin issue (significant redness on the flexor surface of left forearm with a dressing applied) Neuro Exam: Positive: Normal Gait, Strength at 5/5 X4 ext, Sensation Intact Psych Exam: Positive: Mental status NL, Mood NL, Oriented x 3 Vital Signs Vital Signs Date Time Temp Pulse Resp B/P (MAP) Pulse Ox O2 Delivery O2 Flow Rate FiO2 06/28/19 22:20 100 20 06/28/19 21:37 116/75 (89) 97 Room Air 06/28/19 21:30 99.2 Laboratory Data Labs 24H Laboratory Tests 2 06/28/19 21:46: Immature Granulocyte % (Auto) 0.4, White Blood Count 11.2H, Red Blood Count 4.07, Hemoglobin 13.1, Hematocrit 41.0, Mean Corpuscular Volume 100.7H, Mean Corpuscular Hemoglobin 32.2, Mean Corpuscular Hemoglobin Concent 32.0, Red Cell Distribution Width 13.2, Platelet Count 324, Neutrophils (%) (Auto) 76.4H, Lymphocytes (%) (Auto) 14.7L, Monocytes (%) (Auto) 6.9H, Eosinophils (%) (Auto) 1.2, Basophils (%) (Auto) 0.4, Neutrophils # (Auto) 8.6H, Lymphocytes # (Auto) 1.7, Monocytes # (Auto) 0.8, Eosinophils # (Auto) 0.1, Basophils # (Auto) 0.1, N ucleated Red Blood Cells % (auto) 0.0, Anion Gap 6L, Glomerular Filtration Rate > 60.0, Lactic Acid Level 2.9*H, Calcium Level 8.6, Aspartate Amino Transf (AST/SGOT) 31, Alanine Aminotransferase (ALT/SGPT) 31, Alkaline Phosphatase 110, Total Bilirubin 0.4, Direct Bilirubin < 0.1, Total Protein 6.7, Albumin 2.8L, Albumin/Globulin Ratio 0.72L CBC/BMP Laboratory Tests 06/28/19 21:46 Red Blood Count 4.07, Mean Corpuscular Volume 100.7 H, Mean Corpuscular Hemoglobin 32.2, Mean Corpuscular Hemoglobin Concent 32.0, Red Cell Distribution Width 13.2, Neutrophils (%) (Auto) 76.4 H, Lymphocytes (%) (Auto) 14.7 L, Monocytes (%) (Auto) 6.9 H, Eosinophils (%) (Auto) 1.2, Basophils (%) (Auto) 0.4, Neutrophils # (Auto) 8.6 H, Lymphocytes # (Auto) 1.7, Monocytes # (Auto) 0.8, Eosinophils # (Auto) 0.1, Basophils # (Auto) 0.1 Microbiology Microbiology 06/28/19 Gram Stain, Received Pending 06/28/19 Wound Culture, Received Pending 06/28/19 Blood Culture, Received Pending 06/28/19 Blood Culture, Received Pending Problems (1) Cellulitis of left forearm Status: Acute Problem Text: 58 years old white female with past medical history of multiple medical problems including vitamin B12 deficiency, iron deficiency substance abuse, lower back pain, hypertension, vitamin D deficiency, COPD, anxiety, depression, restless leg syndrome was seen in ED 2 days ago, diagnosed with cellulitis of left upper extremity received IV antibiotics and was discharged home on by mouth antibiotics, but she never got the prescription filled out. Patient can make again with worsening symptoms. Hence, she is being admitted for IV antibiotics and the had I&D performed by ED provider cultures have been sent out. Admit to MedSurg floor IV antibiotics Teflaro 600 mg IV every 12 hours Elevation of left upper extremity Wound culture and Gram stain , Tylenol when necessary DVT prophylaxis with Lovenox Diet regular ED as tolerated (2) HTN (hypertension) Status: Chronic Problem Text: Under well control Continue home meds Plan / VTE VTE Prophylaxis Ordered?: Yes UMAIR SALINAS MD Jun 29, 2019 00:23
[2019-06-29 00:50] VITALS: BP 143/74
[2019-06-29] MEDS: rOPINIRole 1MG TAB PO SCH ×2 (01:37→20:34)
[2019-06-29] MEDS: DOCUSATE SODIUM 100 MG CAP PO SCH ×3 (01:37→20:34)
[2019-06-29] MEDS: MIRTAZAPINE 15 MG TAB PO SCH ×2 (01:37→20:34)
[2019-06-29] MEDS: GABAPENTIN 300 MG CAP PO SCH ×2 (01:38→20:34)
[2019-06-29 06:00] VITALS: BP 131/73
[2019-06-29] MEDS: ENOXAPARIN 40 MG/0.4 ML SYRINGE (J1650) SC SCH (08:23)
[2019-06-29] MEDS: ARIPiprazole 10 MG TAB PO SCH (08:23)
[2019-06-29] MEDS: CEFTAROLINE FOSAMIL 600 MG in D5W MINI-BAG PLUS 50 ML IV SCH ×2 (08:25→20:34)
[2019-06-29] MEDS: NIFEdipine 30 MG XL TAB PO SCH (08:25)
[2019-06-29] MEDS: MULTIVITAMINS/MINERALS THERAP 1 TAB PO SCH (08:26)
[2019-06-29] MEDS: GABAPENTIN 100 MG CAP PO SCH ×2 (08:26→13:57)
[2019-06-29] MEDS: VENLAFAXINE **XR** 75MG CAPSULE PO SCH (11:43)
[2019-06-29] MEDS: NICOTINE 21MG/24HR 1 EA TRANSDERMAL TD SCH (11:44)
[2019-06-29 14:19] VITALS: BP 100/61
[2019-06-29] MEDS: IPRATROPIUM 0.5MG/ALBUTEROL 2.5MG INH SOL UD 3ML (DUONEB)(J7620) NEB PRN (16:31)
[2019-06-29 22:00] VITALS: BP 123/78
[2019-06-30 02:56] VITALS: BP 158/82
[2019-06-30 05:29] VITALS: BP 158/72
[2019-06-30 06:35] LABS: HEMATOCRIT 37.6 % (36.0-47.0); MEAN CORPUSCULAR HEMOGLOBIN 31.7 pg (27.0-33.0); MEAN CORPUSCULAR HGB CONC 31.9 g/dl (32.0-36.5); MEAN CORPUSCULAR VOLUME 99.5 fl (80.0-96.0); PLATELET COUNT, AUTOMATED 339 10^3/uL (150-450); RED BLOOD COUNT 3.78 10^6/uL (4.00-5.40); WHITE BLOOD COUNT 6.5 10^3/uL (4.0-10.0)
[2019-06-30 07:00] LABS: ALBUMIN 2.2 GM/DL (3.2-5.2); ALT/SGPT 28 U/L (12-78); BILIRUBIN,TOTAL 0.2 MG/DL (0.2-1.0); BLOOD UREA NITROGEN 19 MG/DL (7-18); CALCIUM LEVEL 8.6 MG/DL (8.5-10.1); CARBON DIOXIDE LEVEL 29 MEQ/L (21-32); CHLORIDE LEVEL 110 MEQ/L (98-107); CREATININE FOR GFR 0.49 MG/DL (0.55-1.30); GLOMERULAR FILTRATION RATE > 60.0 (>51); GLUCOSE, FASTING 84 MG/DL (70-100); MAGNESIUM LEVEL 2.1 MG/DL (1.8-2.4); PHOSPHORUS LEVEL 3.7 MG/DL (2.5-4.9); POTASSIUM SERUM 3.7 MEQ/L (3.5-5.1); SODIUM LEVEL 143 MEQ/L (136-145); TOTAL PROTEIN 6.7 GM/DL (6.4-8.2)
[2019-06-30] MEDS ORDERED: FLUBLOK(EGG FREE)(QUAD)INFLUENZA VACC 0.5ML SYRINGE (90682)18YRS&OLDER IM ONE (09:00)
[2019-06-30] MEDS: GABAPENTIN 100 MG CAP PO SCH ×2 (09:18→15:18)
[2019-06-30] MEDS: VENLAFAXINE **XR** 75MG CAPSULE PO SCH (09:18)
[2019-06-30] MEDS: MULTIVITAMINS/MINERALS THERAP 1 TAB PO SCH (09:18)
[2019-06-30 09:19] VITALS: BP 140/95
[2019-06-30] MEDS: DOCUSATE SODIUM 100 MG CAP PO SCH (09:19)
[2019-06-30] MEDS: NICOTINE 21MG/24HR 1 EA TRANSDERMAL TD SCH (09:19)
[2019-06-30] MEDS: ENOXAPARIN 40 MG/0.4 ML SYRINGE (J1650) SC SCH (09:19)
[2019-06-30] MEDS: ARIPiprazole 10 MG TAB PO SCH (09:19)
[2019-06-30] MEDS: NIFEdipine 30 MG XL TAB PO SCH (09:19)
[2019-06-30] MEDS: CEFTAROLINE FOSAMIL 600 MG in D5W MINI-BAG PLUS 50 ML IV SCH (09:21)
[2019-06-30] MEDS ORDERED: BACT800T5 PO (12:32)
[2019-06-30] MEDS: IPRATROPIUM 0.5MG/ALBUTEROL 2.5MG INH SOL UD 3ML (DUONEB)(J7620) NEB PRN (13:27)
--- NOTE | 2019-06-30 17:24 | DS.PDOC ---
Discharge Summary General Date of Admission Jun 29, 2019 at 00:02 Date of Discharge 06/30/2019 Attending Physician: ADELITA CULP MD Discharge Summary PROCEDURES PERFORMED DURING STAY: Incision and drainage of abscess. ADMITTING DIAGNOSES: 1. Cellulitis with abscess. DISCHARGE DIAGNOSES: 1. Cellulitis with abscess. COMPLICATIONS/CHIEF COMPLAINT: Cellulitis Of Left Forearm. HISTORY OF PRESENT ILLNESS: 58-year-old female was admitted with cellulitis of left upper extremity with abscess, incision and drainage performed in the ED. She was started empirically on Ceftaroline, wound cultures grew MRSA. She reports significant improvement in erythema and pain, has no liquids at this time. She denies any shortness breath, chest pain, nausea, vomiting, abdominal pain or diarrhea. She will be discharged on Bactrim to complete the antibody course at home. She will require a total 10 days of antibiotics. HOSPITAL COURSE: As above. DISCHARGE MEDICATIONS: Please see below. ALLERGIES: Please see below. PHYSICAL EXAMINATION: VITAL SIGNS: Please see below. GENERAL: No distress HEENT: Normocephalic, atraumatic, moist mucous membranes NECK: Supple CARDIOVASCULAR EXAMINATION: S1, S2, no murmurs RESPIRATORY EXAMINATION: Clear to auscultation, no wheezing ABDOMINAL EXAMINATION: Soft, nontender, nondistended, positive bowel sounds EXTREMITIES: Left upper extremity with significant improvement in erythema, open wound with minimal drainage. SKIN: No rash NEUROLOGICAL EXAMINATION: Alert and oriented 3, no focal deficits PSYCHIATRIC EXAMINATION: Calm and cooperative LABORATORY DATA: Please see below. PROGNOSIS: Good ACTIVITY: As tolerated. DIET: Cardiac DISCHARGE PLAN: Patient is follow with PCP in 1-2 weeks DISPOSITION: 01 Home, Self-Care. DISCHARGE INSTRUCTIONS: 1. As above. DISCHARGE CONDITION: Stable. TIME SPENT ON DISCHARGE: Greater than 34 minutes. Vital Signs/I&Os Vital Signs Date Time Temp Pulse Resp B/P (MAP) Pulse Ox O2 Delivery O2 Flow Rate FiO2 06/30/19 09:19 140/95 06/30/19 05:29 98.5 92 18 94 06/28/19 21:37 Room Air I&O- Last 24 Hours up to 6 AM0 06/30/19 06:00 Intake Total 2800 ml Output Total 600 ml Balance 2200 ml Laboratory Data Labs 24H Laboratory Tests 2 06/29/19 20:33: Methicillin-Resist S.aureus DNA PCR NOT DETECTED 06/30/19 06:24: Nucleated Red Blood Cells % (auto) 0.0, Anion Gap 4L, Glomerular Filtration Rate > 60.0, Blood Urea Nitrogen 19H, Creatinine 0.49L, Sodium Level 143, Potassium Level 3.7, Chloride Level 110H, Carbon Dioxide Level 29, Calcium Level 8.6, Phosphorus Level 3.7, Aspartate Amino Transf (AST/SGOT) 25, Alanine Aminotransferase (ALT/SGPT) 28, Alkaline Phosphatase 97, Total Bilirubin 0.2, Total Protein 6.7, Albumin 2.2#L, Magnesium Level 2.1, Albumin/Globulin Ratio 0.49L CBC/BMP Laboratory Tests 06/30/19 06:24 Red Blood Count 3.78 L, Mean Corpuscular Volume 99.5 H, Mean Corpuscular Hemoglobin 31.7, Mean Corpuscular Hemoglobin Concent 31.9 L, Red Cell Distribution Width 13.5, Calcium Level 8.6, Phosphorus Level 3.7, Aspartate Amino Transf (AST/SGOT) 25, Alanine Aminotransferase (ALT/SGPT) 28, Alkaline Phosphatase 97, Total Bilirubin 0.2, Total Protein 6.7, Albumin 2.2 #L Microbiology Microbiology 06/28/19 Gram Stain - Final, Complete 06/28/19 Wound Culture - Final, Complete Staph.aureus Methicillin Resis 06/28/19 Blood Culture - Preliminary, Resulted No growth after 24 hours . All specim... 06/28/19 Blood Culture - Preliminary, Resulted No growth after 24 hours . All specim... Discharge Medications Scheduled Aripiprazole (Aripiprazole) 10 Mg Tablet, 10 MG PO DAILY, (Reported) Cholecalciferol (Vitamin D3) (Vitamin D3) 5,000 Unit Capsule, 5,000 UNIT PO DAILY, (Reported) Gabapentin (Gabapentin) 100 Mg Capsule, 100 MG PO BID, (Reported) TAKES AT 0900 AND 1400 Gabapentin (Gabapentin) 300 Mg Capsule, 300 MG PO QHS, (Reported) Mirtazapine (Remeron) 15 Mg Tablet, 15 MG PO QHS, (Reported) Multivitamins (Thera M Plus Tablet) 1 Tab Tab, 1 TAB PO DAILY, (Reported) Nifedipine (Nifedipine ER) 30 Mg Tab, 30 MG PO DAILY, (Reported) Ropinirole HCl (Ropinirole HCl) 1 Mg Tablet, 1 MG PO QHS, (Reported) Sulfamethoxazole/Trimethoprim (Bactrim Ds Tablet) 1 Each Tablet, 1 TAB PO BID Venlafaxine HCl (Effexor Xr) 75 Mg Cap.er.24h, 75 MG PO DAILY, (Reported) Vitamin B Complex (Vitamin B Complex) 1 Each Tablet, 1 TAB PO DAILY, (Reported) Scheduled PRN Albuterol Sulfate (Proair Hfa) 8.5 Gm Hfa.aer.ad, 2 PUFF INH Q2H PRN for SOB/COUGH, (Reported) Allergies Coded Allergies: No Known Allergies (Verified , 05/28/18) ADELITA CULP MD Jun 30, 2019 17:24
== END 2019-06-30 15:23 | disposition home or self-care (01) | DRG 383 ==
LOC: M ED 21:09 → M ED INP 06-29 00:02 → M MS5PR 06-29 00:50 → M MS4PR 06-30 02:52
PROVIDERS: ADMIT Internal Medicine; ATTEND Internal Medicine
DX: L03.114 Cellulitis of left upper limb (principal); I10 Essential (primary) hypertension; Z79.899 Other long term (current) drug therapy; E66.9 Obesity, unspecified; M54.5 Low back pain; F32.9 Major depressive disorder, single episode, unspecified; F41.9 Anxiety disorder, unspecified; J44.9 Chronic obstructive pulmonary disease, unspecified; E55.9 Vitamin D deficiency, unspecified; E53.8 Deficiency of other specified B group vitamins; F17.200 Nicotine dependence, unspecified, uncomplicated

== ENCOUNTER → 2019-11-24 | Outpatient (REF) | payer OTHER ==
[~2019-11-24] MED LIST changes: +ARIP1TAB PO; +B COTAB3 PO; +D 50CAP3 PO; +REME15TA PO; +ROPI1TAB3 PO; +SULF1TAB93
[2019-11-24 13:25] LABS: BASO # 0.1 10^3/uL (0.0-0.2); BASO % 1.1 % (0.0-1.0); EOS # 0.2 10^3/uL (0.0-0.5); HEMATOCRIT 46.3 % (36.0-47.0); LYMPH # 1.8 10^3/uL (1.5-5.0); LYMPH % 24.2 % (24.0-44.0); MEAN CORPUSCULAR HEMOGLOBIN 31.8 pg (27.0-33.0); MEAN CORPUSCULAR HGB CONC 32.4 g/dl (32.0-36.5); MEAN CORPUSCULAR VOLUME 98.1 fl (80.0-96.0); MONO # 0.5 10^3/uL (0.0-0.8); MONO % 6.7 % (0.0-5.0); NEUTROPHILS % 65.7 % (36.0-66.0); PLATELET COUNT, AUTOMATED 281 10^3/uL (150-450); RED BLOOD COUNT 4.72 10^6/uL (4.00-5.40); WHITE BLOOD COUNT 7.6 10^3/uL (4.0-10.0)
[2019-11-24 14:08] LABS: ALBUMIN 3.6 GM/DL (3.2-5.2); ALT/SGPT 18 U/L (12-78); BILIRUBIN,TOTAL 0.4 MG/DL (0.2-1.0); BLOOD UREA NITROGEN 22 MG/DL (7-18); CALCIUM LEVEL 8.6 MG/DL (8.5-10.1); CARBON DIOXIDE LEVEL 30 MEQ/L (21-32); CHLORIDE LEVEL 107 MEQ/L (98-107); CHOLESTEROL LEVEL 216 MG/DL (<200); CHOLESTEROL RISK RATIO 3.724 (<5); CREATININE FOR GFR 0.73 MG/DL (0.55-1.30); GLOMERULAR FILTRATION RATE > 60.0 (>51); GLUCOSE, FASTING 98 MG/DL (70-100); HDL CHOLESTEROL 58 MG/DL (>40); LDL CHOLESTEROL 137 MG/DL (<100); NON-HDL-C 158 MG/DL; SODIUM LEVEL 142 MEQ/L (136-145); TOTAL PROTEIN 6.8 GM/DL (6.4-8.2); TRIGLYCERIDES LEVEL 106 MG/DL (<150)
[2019-11-24 19:46] LABS: HEMOGLOBIN A1c 5.6 %
== END ==
LOC: M LAB REF 12:20
PROVIDERS: ATTEND Family Medicine
DX: Z13.228 Encounter for screening for other metabolic disorders (principal)

== ENCOUNTER 2020-02-13 22:29 | Emergency (ER) | payer OTHER ==
[~2020-02-13] VITALS: Ht 172.7 cm; Wt 142.0 kg
[~2020-02-13 22:29] MED LIST changes: -CLIN150C14 PO; +CLIN150C15 PO; +GABA-282 PO; -GABA-843 PO; +MIRT-62 PO; -REME15TA PO
[2020-02-13] MEDS ORDERED: NAPR1TAB86 PO (22:42)
[2020-02-13 23:11] LABS: HEMATOCRIT 41.7 % (36.0-47.0); HEMOGLOBIN 13.4 g/dl (12.0-15.5); MEAN CORPUSCULAR HEMOGLOBIN 32.1 pg (27.0-33.0); MEAN CORPUSCULAR HGB CONC 32.1 g/dl (32.0-36.5); PLATELET COUNT, AUTOMATED 300 10^3/uL (150-450); RED BLOOD COUNT 4.17 10^6/uL (4.00-5.40); WHITE BLOOD COUNT 9.5 10^3/uL (4.0-10.0)
[2020-02-13 23:47] LABS: AMPHETAMINES LEVEL URINE NEGATIVE (NEGATIVE); BARBITURATES URINE NEGATIVE (NEGATIVE); BENZODIAZEPINES URINE NEGATIVE (NEGATIVE); CANNABINOIDS URINE NEGATIVE (NEGATIVE); COCAINE METABOLITE URINE NEGATIVE (NEGATIVE); METHADONE URINE NEGATIVE (NEGATIVE); OPIATES URINE NEGATIVE (NEGATIVE); PHENCYCLIDINE URINE NEGATIVE (NEGATIVE)
[2020-02-14] LABS: ACETAMINOPHEN LEVEL < 2.0 UG/ML (10.0-30.0); ALBUMIN 3.4 GM/DL (3.2-5.2); ALT/SGPT 15 U/L (12-78); BILIRUBIN,DIRECT < 0.1 MG/DL (0.0-0.2); BILIRUBIN,TOTAL 0.3 MG/DL (0.2-1.0); BLOOD UREA NITROGEN 21 MG/DL (7-18); CALCIUM LEVEL 7.9 MG/DL (8.5-10.1); CARBON DIOXIDE LEVEL 24 MEQ/L (21-32); CHLORIDE LEVEL 107 MEQ/L (98-107); CREATININE FOR GFR 0.66 MG/DL (0.55-1.30); ETHYL ALCOHOL (ETHANOL) 0.137 % (0.000-0.010); GLOMERULAR FILTRATION RATE > 60.0 (>51); GLUCOSE, FASTING 85 MG/DL (70-100); POTASSIUM SERUM 3.9 MEQ/L (3.5-5.1); SODIUM LEVEL 137 MEQ/L (136-145); TOTAL PROTEIN 6.7 GM/DL (6.4-8.2)
[2020-02-14] MEDS ORDERED: cloNIDine 0.2 MG TAB PO ONE (00:15)
[2020-02-14] MEDS ORDERED: FLUT1BLS5 (07:29)
[2020-02-14] MEDS ORDERED: NAPROXEN 250 MG TAB PO ONE (07:30)
[2020-02-14] MEDS ORDERED: ARIPiprazole 10 MG TAB PO ONE (07:30)
[2020-02-14] MEDS ORDERED: VENLAFAXINE **XR** 75MG CAPSULE PO ONE (07:30)
[2020-02-14] MEDS ORDERED: MULTIVITAMINS/MINERALS THERAP 1 TAB PO ONE (07:30)
[2020-02-14] MEDS ORDERED: ADVAIR HFA 115/21MCG INHALER INH ONE (07:30)
[2020-02-14] MEDS ORDERED: NIFEdipine 30 MG XL TAB PO ONE (07:30)
[2020-02-14 08:48] VITALS: BP 141/85
--- NOTE | 2020-02-14 19:50 | ECGEPIP ---
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
== END 2020-02-14 08:50 ==
LOC: M ED 22:29
DX: R45.851 Suicidal ideations (principal); F33.9 Major depressive disorder, recurrent, unspecified; J44.9 Chronic obstructive pulmonary disease, unspecified; E66.8 Other obesity; Z79.899 Other long term (current) drug therapy; F17.210 Nicotine dependence, cigarettes, uncomplicated
CPT/HCPCS: 36415; 80048; 80076; 80307; 84443; 85027; 93005; 99284; G0480

== ENCOUNTER 2023-10-17 08:43 | Inpatient (IN) | payer MEDICAID, OTHER, SELFPAY ==
[~2023-10-17] VITALS: Ht 170.2 cm; Wt 136.4 kg
[~2023-10-17 08:43] MED LIST changes: +BACTDSTA; +BACTDSTA PO; -CLIN150C15 PO; +CLIN150C17 PO; +FLUT1BLS5; -MIRT-62 PO; +MIRT-88 PO; +NAPR1TAB86 PO; +NIFE-3 PO; -NIFE30TA50 PO; -ROPI1TAB3 PO; +ROPI1TAB73 PO; -SULF1TAB93; -SULF1TAB93 PO
[2023-10-17] MEDS ORDERED: MED REC IN PROGRESS XX SCH (09:00)
[2023-10-17] MEDS: ALBUTEROL 90 MCG/ACT 8GM HFA INHALER INH PRN (09:09)
[2023-10-17] MEDS ORDERED: IBUP200C25 PO (09:32)
[2023-10-17] MEDS ORDERED: ADV500INH INH (09:32)
[2023-10-17 09:34] LABS: HEMATOCRIT 43.8 % (36.0-47.0); HEMOGLOBIN 14.4 g/dl (12.0-15.5); MEAN CORPUSCULAR HEMOGLOBIN 30.9 pg (27.0-33.0); MEAN CORPUSCULAR HGB CONC 32.9 g/dl (32.0-36.5); PLATELET COUNT, AUTOMATED 350 10^3/uL (150-450); RED BLOOD COUNT 4.66 10^6/uL (4.00-5.40); WHITE BLOOD COUNT 9.4 10^3/uL (4.0-10.0)
[2023-10-17 10:04] LABS: ETHYL ALCOHOL (ETHANOL) 0.007 % (0.000-0.010)
[2023-10-17 10:06] LABS: ALBUMIN 3.4 G/DL (3.2-5.2); ALKALINE PHOSPHATASE 118 U/L (46-116); ALT/SGPT 13 U/L (7.0-40); AST/SGOT 17 U/L (<34); BILIRUBIN,DIRECT 0.2 MG/DL (<0.4); BILIRUBIN,TOTAL 0.6 MG/DL (0.3-1.2); BLOOD UREA NITROGEN 13 MG/DL (9-23); CALCIUM LEVEL 9.1 MG/DL (8.3-10.6); CARBON DIOXIDE LEVEL 24 MMOL/L (20-31); CHLORIDE LEVEL 108 MMOL/L (98-107); CREATININE FOR GFR 0.67 MG/DL (0.55-1.30); GLOMERULAR FILTRATION RATE > 60.0 (>45); GLUCOSE, FASTING 110 MG/DL (74-106); POTASSIUM SERUM 3.7 MMOL/L (3.5-5.1); SALICYLATE LEVEL < 3.0 MG/DL (<30); SODIUM LEVEL 139 MMOL/L (136-145); TOTAL PROTEIN 6.8 G/DL (5.7-8.2)
[2023-10-17 10:08] LABS: THYROID STIMULATING HORMONE 2.823 uIU/ML (0.55-4.78)
[2023-10-17] MEDS ORDERED: IPRA0.00 INH (11:53)
[2023-10-17] MEDS ORDERED: ALBU8.5H INH (11:53)
[2023-10-17] MEDS ORDERED: HOME MED LIST COMPLETE! XX SCH (11:55)
[2023-10-17 14:54] LABS: AMPHETAMINES LEVEL URINE NEGATIVE (NEGATIVE); BARBITURATES URINE NEGATIVE (NEGATIVE); BENZODIAZEPINES URINE NEGATIVE (NEGATIVE); CANNABINOIDS URINE NEGATIVE (NEGATIVE); COCAINE METABOLITE URINE NEGATIVE (NEGATIVE); METHADONE URINE NEGATIVE (NEGATIVE); OPIATES URINE NEGATIVE (NEGATIVE); PHENCYCLIDINE URINE NEGATIVE (NEGATIVE)
[2023-10-17] MEDS ORDERED: MAALOX 30 ML SUSP *UDC PO PRN (15:05)
[2023-10-17] MEDS ORDERED: ACETAMINOPHEN TAB 650MG DOSE (2X325MG) PO PRN (15:05)
[2023-10-17] MEDS ORDERED: traZODone 50 MG TAB PO PRN (15:05)
[2023-10-17] MEDS ORDERED: MOM 30ML SUSPENSION UDC PO PRN (15:05)
[2023-10-17] MEDS ORDERED: IBUPROFEN 400MG TAB PO PRN (15:05)
[2023-10-17] MEDS ORDERED: diphenhydrAMINE 25MG CAP PO PRN (15:05)
[2023-10-17] MEDS: IBUPROFEN 400MG TAB PO ONE (16:53)
[2023-10-17 18:06] VITALS: BP 145/84; TEMP 98; O2SAT 95
[2023-10-17 19:29] LABS: ABG BASE EXCESS -4.4 (-2.0-2.0); ABG HCO3 20.9 MMOL/L (22.0-26.0); ABG O2 SATURATION 94.2 % (95.0-99.0); ABG PARTIAL PRESSURE CO2 39.4 mmHg (35.0-45.0); ABG PARTIAL PRESSURE O2 72.8 mmHg (75.0-100.0); ABG STANDARD HCO3 20.8 MMOL/L. (22.0-26.0); ABG TOTAL CO2 22.1 MMOL/L (23.0-31.0); ABG pH (ARTERIAL) 7.343 UNITS (7.350-7.450)
[2023-10-17 19:39] LABS: HEMATOCRIT 43.5 % (36.0-47.0); HEMOGLOBIN 14.3 g/dl (12.0-15.5); MEAN CORPUSCULAR HEMOGLOBIN 31.7 pg (27.0-33.0); MEAN CORPUSCULAR HGB CONC 32.9 g/dl (32.0-36.5); MEAN CORPUSCULAR VOLUME 96.5 fl (80.0-96.0); PLATELET COUNT, AUTOMATED 306 10^3/uL (150-450); RED BLOOD COUNT 4.51 10^6/uL (4.00-5.40); WHITE BLOOD COUNT 10.6 10^3/uL (4.0-10.0)
[2023-10-17 19:51] LABS: HEMOGLOBIN A1c 5.3 % (4.0-6.0)
[2023-10-17 19:55] VITALS: BP_SYST 127; BP_SYST 130; BP_SYST 142; BP_DIAS 76; BP_DIAS 86; BP_DIAS 92
[2023-10-17 19:59] LABS: ALBUMIN 3.3 G/DL (3.2-5.2); ALKALINE PHOSPHATASE 117 U/L (46-116); ALT/SGPT 13 U/L (7.0-40); AST/SGOT 15 U/L (<34); BILIRUBIN,TOTAL 0.4 MG/DL (0.3-1.2); BLOOD UREA NITROGEN 18 MG/DL (9-23); CALCIUM LEVEL 8.8 MG/DL (8.3-10.6); CARBON DIOXIDE LEVEL 25 MMOL/L (20-31); CHLORIDE LEVEL 106 MMOL/L (98-107); CHOLESTEROL RISK RATIO 4.75 (<5); CK-MB VALUE MASS < 1.0 NG/ML (<3.6); CPK CREATINE PHOSPHOKINASE 38 U/L (34-145); CREATININE FOR GFR 0.94 MG/DL (0.55-1.30); GLOMERULAR FILTRATION RATE > 60.0 (>45); GLUCOSE, FASTING 226 MG/DL (74-106); HDL CHOLESTEROL 36.8 MG/DL (>40); LDL CHOLESTEROL 117.8 MG/DL (<100); MAGNESIUM LEVEL 1.8 MG/DL (1.8-2.4); MB/CK RELATIVE INDEX 2.63 (< OR =4); NON-HDL-C 138.2 MG/DL; PERCENT SATURATION 11.4 % (13.2-45.0); POTASSIUM SERUM 4.2 MMOL/L (3.5-5.1); SODIUM LEVEL 142 MMOL/L (136-145); TOTAL PROTEIN 6.9 G/DL (5.7-8.2)
[2023-10-17 20:01] LABS: FERRITIN 26.7 NG/ML (7.3-270.7); TOTAL 25(OH) VITAMIN D 13.1 NG/ML (20.0-100.0)
[2023-10-17] MEDS: ADVAIR HFA 230/21MCG INHALER INH SCH (20:03)
[2023-10-17] MEDS ORDERED: ADVI200T PO (22:11)
[2023-10-18] MEDS ORDERED: CEFD300CAP PO (08:23)
[2023-10-18] MEDS ORDERED: MAGN400C2 PO (08:23)
[2023-10-18] MEDS ORDERED: LASI40TA9 PO (08:23)
[2023-10-18] MEDS ORDERED: COMBAER6 INH (08:23)
[2023-10-18] MEDS ORDERED: MUCI600T31 PO (08:23)
[2023-10-18] MEDS ORDERED: PRED10TA2 PO (08:23)
[2023-10-18] MEDS ORDERED: POTA-151 PO (08:23)
[2023-10-18] MEDS ORDERED: ALBU6.7H6 INH (08:23)
== END 2023-10-17 20:54 | disposition short-term general hospital (02) | DRG 754 ==
LOC: EDBD 08:43 → M ED 08:43 → M ED INP 15:02 → M PSY 17:09
PROVIDERS: ADMIT Student in an Organized Health Care Education/Training Program; ATTEND Student in an Organized Health Care Education/Training Program
DX: F32.A Depression, unspecified (principal); R45.851 Suicidal ideations; F41.9 Anxiety disorder, unspecified

== ENCOUNTER 2023-10-17 19:48 | Inpatient (IN) | payer MEDICAID, SELFPAY ==
[~2023-10-17] VITALS: Ht 170.2 cm; Wt 132.6 kg
[~2023-10-17 19:48] MED LIST changes: +ADV500INH INH; +ALBU8.5H INH; +IBUP200C25 PO; +IPRA0.00 INH
[2023-10-17] MEDS ORDERED: methylPREDNISolone 125MG 2ML VIAL IV STA (20:02)
[2023-10-17] MEDS ORDERED: ALBUTEROL SULFATE 2.5MG/0.5ML INH NEB SOLN NEB PRN (20:05)
[2023-10-17] MEDS ORDERED: ISOVUE-370 76% 100ML VIAL As Ordered ONE (20:24)
[2023-10-17 21:00] VITALS: BP 139/88; TEMP 97.6; O2SAT 94
[2023-10-17] MEDS: DOCUSATE SODIUM 100MG CAPSULE PO SCH (21:00)
[2023-10-17] MEDS: PIPERACILLIN/TAZOBACTAM SOD 4.5 GM in D5W MINI-BAG PLUS 50 ML IV SCH (21:42)
[2023-10-17 22:00] VITALS: O2SAT 93
[2023-10-17] MEDS ORDERED: FUROSEMIDE 20MG/2ML VIAL IV ONE (22:00)
[2023-10-17] MEDS ORDERED: ADVI200T PO (22:11)
[2023-10-17] MEDS ORDERED: HOME MED LIST COMPLETE! XX SCH (22:15)
[2023-10-17 23:00] VITALS: O2SAT 93
[2023-10-18] VITALS (31 sets, daily range): BP systolic 102–153; BP diastolic 60–92; TEMP 96.8–97.6; O2SAT 87–98
[2023-10-18] MEDS: IPRATROPIUM 0.5MG/ALBUTEROL 2.5MG INH SOL UD 3ML (DUONEB) NEB SCH ×4 (01:37→20:35)
[2023-10-18] MEDS: ACETAMINOPHEN TAB 650MG DOSE (2X325MG) PO PRN ×2 (03:23→10:09)
[2023-10-18] MEDS: PIPERACILLIN/TAZOBACTAM SOD 4.5 GM in D5W MINI-BAG PLUS 50 ML IV SCH (03:23)
[2023-10-18] MEDS: HEPARIN SOD (PORCINE) 5000UNITS/ML 1ML VIAL/SYRINGE SC SCH ×3 (05:08→21:22)
[2023-10-18 05:47] LABS: HEMATOCRIT 41.7 % (36.0-47.0); MEAN CORPUSCULAR HEMOGLOBIN 31.6 pg (27.0-33.0); MEAN CORPUSCULAR HGB CONC 33.6 g/dl (32.0-36.5); MEAN CORPUSCULAR VOLUME 94.1 fl (80.0-96.0); PLATELET COUNT, AUTOMATED 326 10^3/uL (150-450); RED BLOOD COUNT 4.43 10^6/uL (4.00-5.40); WHITE BLOOD COUNT 9.3 10^3/uL (4.0-10.0)
[2023-10-18] MEDS ORDERED: methylPREDNISolone 125MG 2ML VIAL IV SCH (06:00)
[2023-10-18 06:20] LABS: BLOOD UREA NITROGEN 19 MG/DL (9-23); CALCIUM LEVEL 9.1 MG/DL (8.3-10.6); CARBON DIOXIDE LEVEL 24 MMOL/L (20-31); CHLORIDE LEVEL 105 MMOL/L (98-107); CREATININE FOR GFR 0.72 MG/DL (0.55-1.30); GLOMERULAR FILTRATION RATE > 60.0 (>45); GLUCOSE, FASTING 260 MG/DL (74-106); MAGNESIUM LEVEL 1.6 MG/DL (1.8-2.4); POTASSIUM SERUM 3.5 MMOL/L (3.5-5.1); SODIUM LEVEL 140 MMOL/L (136-145)
[2023-10-18] MEDS: SYMBICORT 160/4.5MCG INHALER 6GM INH SCH ×2 (07:54→20:35)
[2023-10-18 07:56] LABS: CK-MB VALUE MASS < 1.0 NG/ML (<3.6)
[2023-10-18 07:58] LABS: CPK CREATINE PHOSPHOKINASE 45 U/L (34-145); MB/CK RELATIVE INDEX 2.22 (< OR =4)
[2023-10-18] MEDS ORDERED: MAG SULF 1GM/100ML (MAG RUN) 1 GM in IV 1 EA IV ONE (08:00)
[2023-10-18] MEDS ORDERED: PRED10TA2 PO (08:23)
[2023-10-18] MEDS ORDERED: MUCI600T31 PO (08:23)
[2023-10-18] MEDS ORDERED: MAGN400C2 PO (08:23)
[2023-10-18] MEDS ORDERED: ALBU6.7H6 INH (08:23)
[2023-10-18] MEDS ORDERED: POTA-151 PO (08:23)
[2023-10-18] MEDS ORDERED: CEFD300CAP PO (08:23)
[2023-10-18] MEDS ORDERED: LASI40TA9 PO (08:23)
[2023-10-18] MEDS ORDERED: COMBAER6 INH (08:23)
[2023-10-18] MEDS: CEFDINIR 300 MG CAP (OMNICEF) PO SCH ×2 (08:54→21:21)
[2023-10-18] MEDS: guaiFENesin ER TABLET 600 MG TAB PO SCH ×2 (08:54→21:22)
[2023-10-18] MEDS: DOCUSATE SODIUM 100MG CAPSULE PO SCH ×2 (08:54→21:22)
[2023-10-18] MEDS: PANTOPRAZOLE 40MG TAB (PROTONIX) PO SCH (08:55)
[2023-10-18] MEDS ORDERED: metOLazone 5 MG TAB PO ONE (09:00)
[2023-10-18] MEDS ORDERED: INFLUENZA QUADRIVALENT PF VACCINE 0.5ML SYRINGE IM.IMMUN ONE (09:00)
[2023-10-18] MEDS ORDERED: FUROSEMIDE 40MG/4ML VIAL IV ONE (09:30)
[2023-10-18] MEDS ORDERED: SERTRALINE HCL 50 MG TAB PO ONE (12:15)
[2023-10-18 12:20] LABS: MAGNESIUM LEVEL 1.8 MG/DL (1.8-2.4); POTASSIUM SERUM 3.2 MMOL/L (3.5-5.1)
[2023-10-18] MEDS ORDERED: POTASSIUM CHLORIDE 10MEQ SR TABLET PO ONE (16:05)
[2023-10-18] MEDS ORDERED: MIDODRINE 5 MG TAB PO ONE (16:40)
[2023-10-18 18:07] LABS: IONIZED CALCIUM 4.4 MG/DL (4.5-5.3)
[2023-10-18 18:34] LABS: MAGNESIUM LEVEL 1.9 MG/DL (1.8-2.4)
[2023-10-18 18:36] LABS: BLOOD UREA NITROGEN 25 MG/DL (9-23); CALCIUM LEVEL 9.5 MG/DL (8.3-10.6); CARBON DIOXIDE LEVEL 28 MMOL/L (20-31); CHLORIDE LEVEL 102 MMOL/L (98-107); CREATININE FOR GFR 0.81 MG/DL (0.55-1.30); GLOMERULAR FILTRATION RATE > 60.0 (>45); GLUCOSE, FASTING 149 MG/DL (74-106); POTASSIUM SERUM 3.6 MMOL/L (3.5-5.1); SODIUM LEVEL 140 MMOL/L (136-145)
[2023-10-19] VITALS: BP 107/64; TEMP 98; O2SAT 96; O2SAT 98
[2023-10-19 00:53] LABS: BLOOD UREA NITROGEN 29 MG/DL (9-23); CALCIUM LEVEL 9.2 MG/DL (8.3-10.6); CARBON DIOXIDE LEVEL 30 MMOL/L (20-31); CHLORIDE LEVEL 104 MMOL/L (98-107); CREATININE FOR GFR 0.81 MG/DL (0.55-1.30); GLOMERULAR FILTRATION RATE > 60.0 (>45); GLUCOSE, FASTING 135 MG/DL (74-106); POTASSIUM SERUM 3.8 MMOL/L (3.5-5.1); SODIUM LEVEL 140 MMOL/L (136-145)
[2023-10-19 01:00] VITALS: O2SAT 94
[2023-10-19 02:00] VITALS: O2SAT 95
[2023-10-19 02:02] VITALS: O2SAT 96
[2023-10-19] MEDS: IPRATROPIUM 0.5MG/ALBUTEROL 2.5MG INH SOL UD 3ML (DUONEB) NEB SCH ×3 (02:06→13:36)
[2023-10-19 03:56] VITALS: BP 123/85; TEMP 97.3; O2SAT 92
[2023-10-19] MEDS: HEPARIN SOD (PORCINE) 5000UNITS/ML 1ML VIAL/SYRINGE SC SCH ×2 (05:15→14:00)
[2023-10-19] MEDS: ACETAMINOPHEN TAB 650MG DOSE (2X325MG) PO PRN ×2 (06:43→15:19)
[2023-10-19 06:57] LABS: BLOOD UREA NITROGEN 32 MG/DL (9-23); CALCIUM LEVEL 9.3 MG/DL (8.3-10.6); CARBON DIOXIDE LEVEL 33 MMOL/L (20-31); CHLORIDE LEVEL 105 MMOL/L (98-107); CREATININE FOR GFR 0.79 MG/DL (0.55-1.30); GLOMERULAR FILTRATION RATE > 60.0 (>45); GLUCOSE, FASTING 102 MG/DL (74-106); POTASSIUM SERUM 3.8 MMOL/L (3.5-5.1); SODIUM LEVEL 144 MMOL/L (136-145)
[2023-10-19] MEDS: SYMBICORT 160/4.5MCG INHALER 6GM INH SCH (07:18)
[2023-10-19] MEDS: CEFDINIR 300 MG CAP (OMNICEF) PO SCH (08:17)
[2023-10-19] MEDS: guaiFENesin ER TABLET 600 MG TAB PO SCH (08:17)
[2023-10-19] MEDS: PANTOPRAZOLE 40MG TAB (PROTONIX) PO SCH (08:18)
[2023-10-19] MEDS: DOCUSATE SODIUM 100MG CAPSULE PO SCH (08:18)
[2023-10-19] MEDS ORDERED: predniSONE 20 MG TAB PO SCH (09:00)
[2023-10-19] MEDS ORDERED: SERTRALINE HCL 50 MG TAB PO SCH (09:00)
[2023-10-19 13:11] LABS: BLOOD UREA NITROGEN 35 MG/DL (9-23); CALCIUM LEVEL 9.1 MG/DL (8.3-10.6); CARBON DIOXIDE LEVEL 31 MMOL/L (20-31); CHLORIDE LEVEL 106 MMOL/L (98-107); CREATININE FOR GFR 0.86 MG/DL (0.55-1.30); GLOMERULAR FILTRATION RATE > 60.0 (>45); GLUCOSE, FASTING 113 MG/DL (74-106); POTASSIUM SERUM 3.9 MMOL/L (3.5-5.1); SODIUM LEVEL 143 MMOL/L (136-145)
[2023-10-19 14:00] VITALS: BP 122/82; TEMP 97.3; O2SAT 93
== END 2023-10-19 15:57 | DRG 140 ==
LOC: M ED INP 19:48 → M PCU 20:58 → M MSPAV 10-19 03:48
PROVIDERS: ADMIT Family Medicine; ATTEND General Practice
DX: J44.1 Chronic obstructive pulmonary disease with (acute) exacerbation (principal); I27.20 Pulmonary hypertension, unspecified; J47.1 Bronchiectasis with (acute) exacerbation; I11.0 Hypertensive heart disease with heart failure; Z68.42 Body mass index [BMI] 45.0-49.9, adult; I50.32 Chronic diastolic (congestive) heart failure; I27.81 Cor pulmonale (chronic); R45.851 Suicidal ideations; E66.01 Morbid (severe) obesity due to excess calories; E83.51 Hypocalcemia; F32.A Depression, unspecified; Z59.00 Homelessness unspecified; Z91.119 Patient's noncompliance with dietary regimen due to unspecified reason; G47.33 Obstructive sleep apnea (adult) (pediatric); K44.9 Diaphragmatic hernia without obstruction or gangrene; M17.0 Bilateral primary osteoarthritis of knee; M16.12 Unilateral primary osteoarthritis, left hip; R53.81 Other malaise; Z79.899 Other long term (current) drug therapy; F41.9 Anxiety disorder, unspecified; M54.59 Other low back pain; E53.8 Deficiency of other specified B group vitamins; Z87.891 Personal history of nicotine dependence; R00.0 Tachycardia, unspecified; Z91.148 Patient's other noncompliance with medication regimen for other reason; J44.0 Chronic obstructive pulmonary disease with (acute) lower respiratory infection

== ENCOUNTER 2023-10-19 14:14 | Inpatient (IN) | payer MEDICAID, SELFPAY ==
[~2023-10-19] VITALS: Ht 170.2 cm; Wt 138.5 kg
[2023-10-19] MEDS: predniSONE 20 MG TAB PO SCH (09:00)
[~2023-10-19 14:14] MED LIST changes: +ADVI200T PO; +ALBU6.7H6 INH; +CEFD300CAP PO; +COMBAER6 INH; +LASI40TA9 PO; +MAGN400C2 PO; +MUCI600T31 PO; +POTA-151 PO; +PRED10TA2 PO
[2023-10-19] MEDS ORDERED: traZODone 50 MG TAB PO PRN (14:20)
[2023-10-19] MEDS ORDERED: IBUPROFEN 400MG TAB PO PRN (14:20)
[2023-10-19] MEDS ORDERED: diphenhydrAMINE 25MG CAP PO PRN (14:20)
[2023-10-19] MEDS ORDERED: ACETAMINOPHEN TAB 650MG DOSE (2X325MG) PO PRN (14:20)
[2023-10-19] MEDS ORDERED: MOM 30ML SUSPENSION UDC PO PRN ×2 (14:20→14:25)
[2023-10-19] MEDS ORDERED: MAALOX 30 ML SUSP *UDC PO PRN ×2 (14:20→14:25)
[2023-10-19 18:00] VITALS: BP 122/82; TEMP 97.3; O2SAT 93
[2023-10-19] MEDS ORDERED: ALBUTEROL SULFATE 2.5MG/0.5ML INH NEB SOLN NEB SCH (20:00)
[2023-10-19] MEDS: ALBUTEROL SULFATE 2.5MG/0.5ML INH NEB SOLN NEB SCH (20:00)
[2023-10-19] MEDS: ACETAMINOPHEN TAB 650MG DOSE (2X325MG) PO PRN (21:01)
[2023-10-19] MEDS: CEFDINIR 300 MG CAP (OMNICEF) PO SCH (21:02)
[2023-10-19] MEDS: guaiFENesin ER TABLET 600 MG TAB PO SCH (21:02)
[2023-10-19] MEDS: traZODone 50 MG TAB PO PRN (21:02)
[2023-10-20] MEDS: ALBUTEROL SULFATE 2.5MG/0.5ML INH NEB SOLN NEB PRN (06:07)
[2023-10-20 06:34] VITALS: BP 130/90; TEMP 97; O2SAT 92
[2023-10-20 07:55] LABS: BLOOD UREA NITROGEN 36 MG/DL (9-23); CALCIUM LEVEL 8.6 MG/DL (8.3-10.6); CARBON DIOXIDE LEVEL 30 MMOL/L (20-31); CHLORIDE LEVEL 103 MMOL/L (98-107); CREATININE FOR GFR 0.79 MG/DL (0.55-1.30); GLOMERULAR FILTRATION RATE > 60.0 (>45); GLUCOSE, FASTING 82 MG/DL (74-106); POTASSIUM SERUM 3.8 MMOL/L (3.5-5.1); SODIUM LEVEL 141 MMOL/L (136-145)
[2023-10-20] MEDS: SYMBICORT 160/4.5MCG INHALER 6GM INH SCH (08:39)
[2023-10-20] MEDS: ACETAMINOPHEN 500 MG TAB PO SCH (08:40)
[2023-10-20] MEDS: DICLOFENAC EPOLAMINE 1.3% PATCH TOP SCH (09:35)
[2023-10-20 16:59] VITALS: BP 106/62; TEMP 97.5; O2SAT 97
[2023-10-20] MEDS: diphenhydrAMINE 25MG CAP PO PRN (20:13)
[2023-10-21 06:33] VITALS: BP 148/84; TEMP 98.6; O2SAT 93
[2023-10-21] MEDS: predniSONE 10MG TAB PO SCH (09:03)
[2023-10-21] MEDS: SERTRALINE HCL 50 MG TAB PO SCH (09:03)
[2023-10-21] MEDS: busPIRone 5 MG TAB PO SCH (09:03)
[2023-10-21] MEDS: IBUPROFEN 400MG TAB PO PRN (13:47)
[2023-10-21 18:13] VITALS: BP 114/60; TEMP 97.1; O2SAT 99
[2023-10-22 06:39] VITALS: BP 119/60; TEMP 97.1; O2SAT 94
[2023-10-22 18:11] VITALS: BP 142/62; TEMP 97.8
[2023-10-23] MEDS: ALBUTEROL 90 MCG/ACT 8GM HFA INHALER INH PRN (04:22)
[2023-10-23 06:23] VITALS: BP 113/70; TEMP 97.5; O2SAT 95
[2023-10-23 18:17] VITALS: BP 133/87; TEMP 98.7
[2023-10-24 06:16] VITALS: BP 137/78; TEMP 97.8; O2SAT 95
[2023-10-24] MEDS ORDERED: ALBUTEROL SULFATE 2.5MG/0.5ML INH NEB SOLN NEB PRN (09:00)
[2023-10-24 17:24] VITALS: BP 130/78; TEMP 98
[2023-10-24] MEDS: rOPINIRole 1MG TAB PO SCH (23:35)
[2023-10-25 16:03] VITALS: BP 124/73; TEMP 97.3; O2SAT 93
[2023-10-25] MEDS: busPIRone 10 MG TAB PO SCH (21:46)
[2023-10-26 06:46] VITALS: BP 122/86; TEMP 98.1; O2SAT 94
[2023-10-26] MEDS: SERTRALINE 100 MG TAB PO SCH (09:00)
[2023-10-26 16:30] VITALS: BP 138/87; TEMP 98.3; O2SAT 96
[2023-10-27 06:29] VITALS: BP 136/85; TEMP 96.8; O2SAT 99
[2023-10-27 15:26] VITALS: BP 111/77; TEMP 97.4; O2SAT 96
[2023-10-28 06:26] VITALS: BP 125/60; TEMP 97.5; O2SAT 97
[2023-10-28 18:23] VITALS: BP 107/60; TEMP 97.6; O2SAT 96
[2023-10-29 06:04] VITALS: BP 107/55; TEMP 98.1; O2SAT 96
[2023-10-29 18:27] VITALS: BP 114/71; TEMP 98.2; O2SAT 100
[2023-10-30 06:42] VITALS: BP 126/71; TEMP 97.7; O2SAT 97
[2023-10-30] MEDS: DICLOFENAC EPOLAMINE 1.3% PATCH TOP SCH (12:08)
[2023-10-30 18:22] VITALS: BP 126/89; TEMP 98.4
[2023-10-31 06:42] VITALS: BP 129/88; TEMP 97.6; O2SAT 97
[2023-10-31 14:33] LABS: BASO # 0.1 10^3/uL (0.0-0.2); BASO % 0.5 % (0.0-1.0); EOS # 0.3 10^3/uL (0.0-0.5); HEMATOCRIT 38.7 % (36.0-47.0); HEMOGLOBIN 12.3 g/dl (12.0-15.5); LYMPH # 2.2 10^3/uL (1.5-5.0); LYMPH % 23.6 % (24.0-44.0); MEAN CORPUSCULAR HEMOGLOBIN 31.4 pg (27.0-33.0); MEAN CORPUSCULAR HGB CONC 31.8 g/dl (32.0-36.5); MEAN CORPUSCULAR VOLUME 98.7 fl (80.0-96.0); MONO # 0.4 10^3/uL (0.0-0.8); MONO % 4.6 % (2.0-8.0); NEUTROPHILS # 6.3 10^3/uL (1.5-8.5); PLATELET COUNT, AUTOMATED 275 10^3/uL (150-450); RED BLOOD COUNT 3.92 10^6/uL (4.00-5.40); WHITE BLOOD COUNT 9.3 10^3/uL (4.0-10.0)
[2023-10-31] MEDS: CEPHALEXIN 500 MG CAP PO SCH (14:33)
[2023-10-31] MEDS: FUROSEMIDE 20 MG TAB PO SCH (17:01)
[2023-10-31 17:57] VITALS: BP 137/65; TEMP 98.1; O2SAT 95
[2023-10-31] MEDS: ENOXAPARIN 40MG/0.4ML SYRINGE (J1650 PER 10MG) SC SCH (20:13)
[2023-10-31] MEDS: DOXYCYCLINE HYCLATE 100MG TABLET PO SCH (20:15)
[2023-11-01 06:21] VITALS: BP 124/74; TEMP 97.3; O2SAT 95
[2023-11-01 09:25] VITALS: BP 124/74; TEMP 97.3; O2SAT 95
[2023-11-01] MEDS: rOPINIRole 1MG TAB PO SCH (13:41)
[2023-11-01 16:22] VITALS: BP 130/81; TEMP 97.7; O2SAT 94
[2023-11-02 06:45] VITALS: BP 120/66; TEMP 97.5; O2SAT 96
[2023-11-03 06:15] LABS: HEMATOCRIT 35.7 % (36.0-47.0); HEMOGLOBIN 11.4 g/dl (12.0-15.5); MEAN CORPUSCULAR HEMOGLOBIN 31.5 pg (27.0-33.0); MEAN CORPUSCULAR HGB CONC 31.9 g/dl (32.0-36.5); MEAN CORPUSCULAR VOLUME 98.6 fl (80.0-96.0); PLATELET COUNT, AUTOMATED 246 10^3/uL (150-450); RED BLOOD COUNT 3.62 10^6/uL (4.00-5.40); WHITE BLOOD COUNT 6.4 10^3/uL (4.0-10.0)
[2023-11-03 06:21] VITALS: BP 142/98; TEMP 97.4; O2SAT 97
[2023-11-03 16:06] VITALS: BP 122/84; TEMP 98.2; O2SAT 95
[2023-11-04 05:29] VITALS: BP 127/60; TEMP 97.9; O2SAT 92
[2023-11-04] MEDS ORDERED: BUSP10TA PO (09:34)
[2023-11-04] MEDS ORDERED: DICL1PAT6 TOP (09:34)
[2023-11-04] MEDS ORDERED: ROPI1TAB73 PO (09:34)
[2023-11-04] MEDS ORDERED: ALBU8.5H INH (09:34)
[2023-11-04] MEDS ORDERED: ALB2.5NEB NEB (09:34)
[2023-11-04] MEDS ORDERED: MUCI600T31 PO (09:34)
[2023-11-04] MEDS ORDERED: ACET-683 PO (09:34)
[2023-11-04] MEDS ORDERED: ZOLO100T PO (09:34)
[2023-11-04] MEDS ORDERED: SYMB16INH INH (09:34)
[2023-11-04] MEDS ORDERED: TRAZ-252 PO (09:34)
[2023-11-04 17:11] VITALS: BP 142/78; TEMP 98.3; O2SAT 93
[2023-11-05 06:14] VITALS: BP 150/92; TEMP 97.2; O2SAT 95
[2023-11-05] MEDS ORDERED: [UNRECOGNIZED DRUG - CODE] TP (08:34)
[2023-11-05 15:50] VITALS: BP 128/78; TEMP 98; O2SAT 97
[2023-11-06 06:32] VITALS: BP 131/76; TEMP 97.6; O2SAT 95
== END 2023-11-06 10:04 | disposition home or self-care (01) | DRG 751 ==
LOC: M PSY 16:04
PROVIDERS: ADMIT Psychiatry & Neurology Psychiatry; ATTEND Student in an Organized Health Care Education/Training Program
DX: F33.2 Major depressive disorder, recurrent severe without psychotic features (principal); I50.32 Chronic diastolic (congestive) heart failure; Z68.42 Body mass index [BMI] 45.0-49.9, adult; I27.20 Pulmonary hypertension, unspecified; L03.116 Cellulitis of left lower limb; R45.851 Suicidal ideations; Z91.119 Patient's noncompliance with dietary regimen due to unspecified reason; E66.01 Morbid (severe) obesity due to excess calories; F43.10 Post-traumatic stress disorder, unspecified; F41.1 Generalized anxiety disorder; J44.9 Chronic obstructive pulmonary disease, unspecified; J47.9 Bronchiectasis, uncomplicated; Z79.899 Other long term (current) drug therapy; G47.33 Obstructive sleep apnea (adult) (pediatric); K44.9 Diaphragmatic hernia without obstruction or gangrene; I25.10 Atherosclerotic heart disease of native coronary artery without angina pectoris; M19.90 Unspecified osteoarthritis, unspecified site; Z79.52 Long term (current) use of systemic steroids; I89.0 Lymphedema, not elsewhere classified

== ENCOUNTER → 2023-12-26 | Outpatient (REF) | payer MEDICAID ==
[~2023-12-26] MED LIST changes: +ACET-683 PO; +ALB2.5NEB NEB; +BUSP10TA PO; +DICL1PAT6 TOP; +SYMB16INH INH; +TRAZ-252 PO; +ZOLO100T PO; +[UNRECOGNIZED DRUG - CODE] TP
[2023-12-26 18:34] LABS: THYROID STIMULATING HORMONE 1.395 uIU/ML (0.55-4.78)
[2023-12-26 18:35] LABS: HEMOGLOBIN A1c 5.1 % (4.0-6.0)
[2023-12-26 18:36] LABS: TOTAL 25(OH) VITAMIN D 8.9 NG/ML (20.0-100.0)
[2023-12-26 18:38] LABS: ALBUMIN 3.2 G/DL (3.2-5.2); ALKALINE PHOSPHATASE 108 U/L (46-116); ALT/SGPT 17 U/L (7.0-40); AST/SGOT 14 U/L (<34); BILIRUBIN,TOTAL 0.4 MG/DL (0.3-1.2); BLOOD UREA NITROGEN 20 MG/DL (9-23); CALCIUM LEVEL 8.7 MG/DL (8.3-10.6); CARBON DIOXIDE LEVEL 26 MMOL/L (20-31); CHLORIDE LEVEL 106 MMOL/L (98-107); CHOLESTEROL LEVEL 188 MG/DL (<200); GLOMERULAR FILTRATION RATE > 60.0 (>45); GLUCOSE, FASTING 98 MG/DL (74-106); HDL CHOLESTEROL 52.2 MG/DL (>40); LDL CHOLESTEROL 117.8 MG/DL (<100); NON-HDL-C 135.8 MG/DL; POTASSIUM SERUM 4.6 MMOL/L (3.5-5.1); SODIUM LEVEL 140 MMOL/L (136-145); TOTAL PROTEIN 6.3 G/DL (5.7-8.2); TRIGLYCERIDES LEVEL 90 MG/DL (<150)
[2023-12-26 19:00] LABS: HIV 1&2 SCREEN NEGATIVE (NEGATIVE)
[2023-12-26 19:07] LABS: HEPATITIS C VIRUS ABY INDEX < 0.02 INDEX (<0.8)
== END ==
LOC: M LAB REF 17:25
PROVIDERS: ATTEND Physician Assistant
DX: Z11.9 Encounter for screening for infectious and parasitic diseases, unspecified (principal); E55.9 Vitamin D deficiency, unspecified; E66.01 Morbid (severe) obesity due to excess calories

== ENCOUNTER → 2024-02-06 | Outpatient (CLI) | payer OTHER | LOC: M WHC 11:53 | PROVIDERS: ATTEND Physician Assistant | DX: Z12.31 Encounter for screening mammogram for malignant neoplasm of breast (principal) ==

== ENCOUNTER → 2025-01-07 | Outpatient (REF) | payer OTHER ==
[~2025-01-07] MED LIST changes: -ADV500INH INH; +ADVA1AER10 INH; +GABA-1172 PO; -GABA-282 PO
[2025-01-07 14:35] LABS: BASO # 0.1 10^3/uL (0.0-0.2); BASO % 0.7 % (0.0-1.0); EOS # 0.2 10^3/uL (0.0-0.5); EOS % 2.6 % (0.0-3.0); HEMATOCRIT 44.1 % (36.0-47.0); HEMOGLOBIN 13.1 g/dl (12.0-15.5); LYMPH # 2.1 10^3/uL (1.5-5.0); LYMPH % 25.3 % (24.0-44.0); MEAN CORPUSCULAR HEMOGLOBIN 28.5 pg (27.0-33.0); MEAN CORPUSCULAR HGB CONC 29.7 g/dl (32.0-36.5); MEAN CORPUSCULAR VOLUME 95.9 fl (80.0-96.0); MONO # 0.5 10^3/uL (0.0-0.8); MONO % 5.8 % (2.0-8.0); NEUTROPHILS # 5.5 10^3/uL (1.5-8.5); NEUTROPHILS % 65.4 % (36.0-66.0); PLATELET COUNT, AUTOMATED 370 10^3/uL (150-450); WHITE BLOOD COUNT 8.5 10^3/uL (4.0-10.0)
[2025-01-07 14:41] LABS: THYROID STIMULATING HORMONE 1.972 uIU/ML (0.55-4.78)
[2025-01-07 14:42] LABS: ALBUMIN 3.3 G/DL (3.2-5.2); ALKALINE PHOSPHATASE 113 U/L (35-104); ALT/SGPT 20 U/L (7.0-40); AST/SGOT 30 U/L (<34); BILIRUBIN,TOTAL 0.3 MG/DL (0.3-1.2); BLOOD UREA NITROGEN 27 MG/DL (9-23); CALCIUM LEVEL 9.3 MG/DL (8.3-10.6); CARBON DIOXIDE LEVEL 33 MMOL/L (20-31); CHLORIDE LEVEL 105 MMOL/L (98-107); CHOLESTEROL LEVEL 236 MG/DL (<200); CHOLESTEROL RISK RATIO 4.25 (<5); CREATININE FOR GFR 0.59 MG/DL (0.55-1.30); GLOMERULAR FILTRATION RATE > 90.0 (>45); GLUCOSE, FASTING 95 MG/DL (74-106); HDL CHOLESTEROL 55.5 MG/DL (>40); LDL CHOLESTEROL 157.9 MG/DL (<100); MAGNESIUM LEVEL 1.9 MG/DL (1.8-2.4); NON-HDL-C 180.5 MG/DL; POTASSIUM SERUM 4.6 MMOL/L (3.5-5.1); SODIUM LEVEL 144 MMOL/L (136-145); TRIGLYCERIDES LEVEL 113 MG/DL (<150)
[2025-01-07 14:43] LABS: VITAMIN B12 LEVEL 238 PG/ML (211-911)
[2025-01-07 14:48] LABS: FOLATE 19.8 NG/ML (>5.4)
[2025-01-07 14:58] LABS: HEMOGLOBIN A1c 5.2 % (4.0-6.0)
== END ==
LOC: M LAB REF 13:56
PROVIDERS: ATTEND Physician Assistant
DX: I10 Essential (primary) hypertension (principal); E66.01 Morbid (severe) obesity due to excess calories

== ENCOUNTER 2025-05-24 23:07 | Inpatient (IN) | payer OTHER ==
[~2025-05-24] VITALS: Ht 170.2 cm; Wt 149.6 kg
[~2025-05-24 23:07] MED LIST changes: -VITA500T17 PO; +VITA500T8 PO
[2025-05-25 00:25] LABS: BASO # 0.0 10^3/uL (0.0-0.2); BASO % 0.3 % (0.0-1.0); EOS # 0.1 10^3/uL (0.0-0.5); EOS % 1.1 % (0.0-3.0); LYMPH # 1.6 10^3/uL (1.5-5.0); LYMPH % 17.7 % (24.0-44.0); MONO # 0.5 10^3/uL (0.0-0.8); MONO % 5.5 % (2.0-8.0); NEUTROPHILS # 6.5 10^3/uL (1.5-8.5); NEUTROPHILS % 74.9 % (36.0-66.0); PLATELET COUNT, AUTOMATED 321 10^3/uL (150-450)
[2025-05-25 00:48] LABS: ALT/SGPT 17 U/L (7.0-40); AST/SGOT 23 U/L (<34); CALCIUM LEVEL 7.7 MG/DL (8.3-10.6); CARBON DIOXIDE LEVEL 35 MMOL/L (20-31); CHLORIDE LEVEL 104 MMOL/L (98-107); CK-MB VALUE MASS 1.3 NG/ML (<3.6); CREATININE FOR GFR 0.62 MG/DL (0.55-1.30); GLOMERULAR FILTRATION RATE > 90.0 (>45); POTASSIUM SERUM 5.1 MMOL/L (3.5-5.1); SODIUM LEVEL 144 MMOL/L (136-145)
[2025-05-25 00:50] LABS: CPK CREATINE PHOSPHOKINASE 33 U/L (34-145); MB/CK RELATIVE INDEX 3.93 (< OR =4)
[2025-05-25] MEDS: COMBIVENT RESPIMAT 100-20 MCG INHALER 4 GM INH STA (03:05)
[2025-05-25] MEDS ORDERED: ALBUTEROL SULFATE 2.5 MG/0.5 ML INH CONCENTRATE NEB SOLN NEB PRN (03:45)
[2025-05-25] MEDS ORDERED: ACETAMINOPHEN *IV* 1,000 MG in IV 1 EA IV PRN (05:15)
[2025-05-25] MEDS ORDERED: guaiFENesin SYRUP 200 MG/10 ML UDC PO PRN (05:15)
[2025-05-25 07:33] LABS: BASO # 0.0 10^3/uL (0.0-0.2); BASO % 0.2 % (0.0-1.0); EOS # 0.0 10^3/uL (0.0-0.5); EOS % 0.0 % (0.0-3.0); LYMPH # 0.6 10^3/uL (1.5-5.0); LYMPH % 7.1 % (24.0-44.0); MONO # 0.1 10^3/uL (0.0-0.8); MONO % 0.6 % (2.0-8.0); NEUTROPHILS # 7.9 10^3/uL (1.5-8.5); NEUTROPHILS % 91.4 % (36.0-66.0); PLATELET COUNT, AUTOMATED 318 10^3/uL (150-450)
[2025-05-25] MEDS: IPRATROPIUM 0.5 MG/ALBUTEROL 2.5 MG INH SOL UD 3 ML NEB SCH (08:00)
[2025-05-25 08:02] LABS: C REACTIVE PROTEIN QUANTITATIV 1.95 MG/DL (<1.0); CALCIUM LEVEL 8.2 MG/DL (8.3-10.6); CARBON DIOXIDE LEVEL 35 MMOL/L (20-31); CHLORIDE LEVEL 103 MMOL/L (98-107); CREATININE FOR GFR 0.55 MG/DL (0.55-1.30); GLOMERULAR FILTRATION RATE > 90.0 (>45); MAGNESIUM LEVEL 2.0 MG/DL (1.8-2.4); POTASSIUM SERUM 5.4 MMOL/L (3.5-5.1); SODIUM LEVEL 143 MMOL/L (136-145)
[2025-05-25] MEDS: PANTOPRAZOLE 40MG VIAL IV SCH (08:07)
[2025-05-25] MEDS: AZITHROMYCIN 250 MG TABLET PO SCH (08:07)
[2025-05-25] MEDS: SYMBICORT 160/4.5MCG INHALER 6GM INH SCH (08:18)
[2025-05-25] MEDS ORDERED: ALBUTEROL 90 MCG/ACT 8 GM HFA INHALER INH PRN (08:55)
[2025-05-25 09:53] LABS: D-DIMER QUANT 2.87 ug/mL (<0.5)
[2025-05-25 10:09] LABS: MAGNESIUM LEVEL 1.8 MG/DL (1.8-2.4)
[2025-05-25] MEDS: FUROSEMIDE 40 MG/4 ML VIAL IV SCH (11:15)
[2025-05-25] MEDS: COMBIVENT RESPIMAT 100-20 MCG INHALER 4 GM INH SCH (11:25)
[2025-05-25] MEDS ORDERED: VITA200032 PO (13:00)
[2025-05-25] MEDS ORDERED: MELO15TA28 PO (13:00)
[2025-05-25] MEDS ORDERED: LOSA50TA28 PO (13:00)
[2025-05-25] MEDS ORDERED: IPRA0.00 NEB (13:00)
[2025-05-25] MEDS ORDERED: VENTAER INH (13:01)
[2025-05-25] MEDS ORDERED: SYMB16INH INH (13:01)
[2025-05-25] MEDS ORDERED: METH-1165 PO (13:01)
[2025-05-25] MEDS ORDERED: ROPI1TAB73 PO (13:01)
[2025-05-25] MEDS ORDERED: HOME MED LIST COMPLETE! XX SCH (13:05)
[2025-05-25] MEDS: REMDESIVIR 200 MG in NS 250 ML IV ONE (14:03)
[2025-05-25 17:46] VITALS: BP 156/99; TEMP 97.3; O2SAT 94
[2025-05-25 18:01] VITALS: O2SAT 93
[2025-05-25] MEDS ORDERED: ISOVUE-370 76% 100 ML VIAL As Ordered ONE (18:21)
[2025-05-25 20:47] VITALS: BP 120/63; TEMP 97.2; O2SAT 92
[2025-05-25] MEDS: ENOXAPARIN 40 MG/0.4 ML SYRINGE (J1650 PER 10MG) SC SCH (21:06)
[2025-05-25] MEDS: LOSARTAN 50 MG TABLET PO SCH (21:06)
[2025-05-25] MEDS: MELOXICAM 7.5 MG TAB PO SCH (21:07)
[2025-05-25] MEDS: ACETAMINOPHEN 325 MG TAB PO PRN (21:18)
[2025-05-25 22:16] VITALS: O2SAT 91
[2025-05-26 04:06] VITALS: BP 141/81; TEMP 97; O2SAT 93
[2025-05-26 06:42] LABS: BASO # 0.0 10^3/uL (0.0-0.2); BASO % 0.1 % (0.0-1.0); EOS # 0.0 10^3/uL (0.0-0.5); EOS % 0.0 % (0.0-3.0); LYMPH # 0.8 10^3/uL (1.5-5.0); LYMPH % 10.5 % (24.0-44.0); MONO # 0.2 10^3/uL (0.0-0.8); MONO % 2.5 % (2.0-8.0); NEUTROPHILS # 6.3 10^3/uL (1.5-8.5); NEUTROPHILS % 86.6 % (36.0-66.0); PLATELET COUNT, AUTOMATED 341 10^3/uL (150-450)
[2025-05-26 07:13] LABS: CALCIUM LEVEL 8.1 MG/DL (8.3-10.6); CARBON DIOXIDE LEVEL 38 MMOL/L (20-31); CHLORIDE LEVEL 98 MMOL/L (98-107); CREATININE FOR GFR 0.56 MG/DL (0.55-1.30); GLOMERULAR FILTRATION RATE > 90.0 (>45); MAGNESIUM LEVEL 2.0 MG/DL (1.8-2.4); POTASSIUM SERUM 4.7 MMOL/L (3.5-5.1); SODIUM LEVEL 143 MMOL/L (136-145)
[2025-05-26 12:02] VITALS: BP 131/84; TEMP 97; O2SAT 94
[2025-05-26] MEDS: ENOXAPARIN 150 MG/ML SYRINGE SC SCH (20:30)
[2025-05-26 20:48] VITALS: BP 141/81; TEMP 97.2; O2SAT 92
[2025-05-26 21:00] VITALS: O2SAT 93
[2025-05-27] VITALS (7 sets, daily range): BP systolic 117–151; BP diastolic 68–91; TEMP 97–97.3; O2SAT 90–94
[2025-05-27 06:22] LABS: BASO # 0.0 10^3/uL (0.0-0.2); BASO % 0.1 % (0.0-1.0); EOS # 0.0 10^3/uL (0.0-0.5); EOS % 0.0 % (0.0-3.0); LYMPH # 0.7 10^3/uL (1.5-5.0); LYMPH % 8.5 % (24.0-44.0); MONO # 0.2 10^3/uL (0.0-0.8); MONO % 2.9 % (2.0-8.0); NEUTROPHILS # 7.2 10^3/uL (1.5-8.5); NEUTROPHILS % 88.3 % (36.0-66.0); PLATELET COUNT, AUTOMATED 393 10^3/uL (150-450)
[2025-05-27 06:49] LABS: CALCIUM LEVEL 7.7 MG/DL (8.3-10.6); CARBON DIOXIDE LEVEL > 40.0 MMOL/L (20-31); CHLORIDE LEVEL 96 MMOL/L (98-107); CREATININE FOR GFR 0.62 MG/DL (0.55-1.30); GLOMERULAR FILTRATION RATE > 90.0 (>45); MAGNESIUM LEVEL 2.0 MG/DL (1.8-2.4); POTASSIUM SERUM 4.1 MMOL/L (3.5-5.1); SODIUM LEVEL 143 MMOL/L (136-145)
[2025-05-27] MEDS: ENOXAPARIN 60 MG/0.6 ML SYRINGE (J1650 PER 10MG) SC SCH (20:10)
[2025-05-28] VITALS (10 sets, daily range): BP systolic 138–144; BP diastolic 84–87; TEMP 97.2–97.9; O2SAT 79–94
[2025-05-28 06:45] LABS: BASO # 0.0 10^3/uL (0.0-0.2); BASO % 0.1 % (0.0-1.0); EOS # 0.0 10^3/uL (0.0-0.5); EOS % 0.0 % (0.0-3.0); LYMPH # 0.6 10^3/uL (1.5-5.0); LYMPH % 8.1 % (24.0-44.0); MONO # 0.3 10^3/uL (0.0-0.8); MONO % 4.0 % (2.0-8.0); NEUTROPHILS # 6.6 10^3/uL (1.5-8.5); NEUTROPHILS % 87.4 % (36.0-66.0); PLATELET COUNT, AUTOMATED 374 10^3/uL (150-450)
[2025-05-28 07:13] LABS: CALCIUM LEVEL 7.5 MG/DL (8.3-10.6); CARBON DIOXIDE LEVEL > 40.0 MMOL/L (20-31); CHLORIDE LEVEL 98 MMOL/L (98-107); CREATININE FOR GFR 0.58 MG/DL (0.55-1.30); GLOMERULAR FILTRATION RATE > 90.0 (>45); MAGNESIUM LEVEL 2.0 MG/DL (1.8-2.4); POTASSIUM SERUM 4.3 MMOL/L (3.5-5.1); SODIUM LEVEL 146 MMOL/L (136-145)
[2025-05-28] MEDS: FUROSEMIDE 20 MG TAB PO SCH (09:10)
[2025-05-29 03:26] VITALS: BP 151/98; TEMP 97; O2SAT 91
[2025-05-29 04:11] VITALS: O2SAT 91
[2025-05-29] MEDS: predniSONE 20 MG TAB PO SCH (08:33)
[2025-05-29 08:34] VITALS: BP 114/70
[2025-05-29 08:36] LABS: BASO # 0.0 10^3/uL (0.0-0.2); BASO % 0.1 % (0.0-1.0); EOS # 0.0 10^3/uL (0.0-0.5); EOS % 0.1 % (0.0-3.0); LYMPH # 2.3 10^3/uL (1.5-5.0); LYMPH % 26.6 % (24.0-44.0); MONO # 0.9 10^3/uL (0.0-0.8); MONO % 9.7 % (2.0-8.0); NEUTROPHILS # 5.5 10^3/uL (1.5-8.5); NEUTROPHILS % 63.3 % (36.0-66.0); PLATELET COUNT, AUTOMATED 375 10^3/uL (150-450)
[2025-05-29 09:00] LABS: CALCIUM LEVEL 7.6 MG/DL (8.3-10.6); CARBON DIOXIDE LEVEL > 40.0 MMOL/L (20-31); CHLORIDE LEVEL 98 MMOL/L (98-107); CREATININE FOR GFR 0.57 MG/DL (0.55-1.30); GLOMERULAR FILTRATION RATE > 90.0 (>45); MAGNESIUM LEVEL 2.0 MG/DL (1.8-2.4); POTASSIUM SERUM 4.0 MMOL/L (3.5-5.1); SODIUM LEVEL 143 MMOL/L (136-145)
[2025-05-29] MEDS ORDERED: PRED10TA2 PO (10:15)
[2025-05-29] MEDS ORDERED: PANT20TA6 PO (10:15)
== END 2025-05-29 11:43 | disposition home health service (06) | DRG 137 ==
LOC: M ED 23:07 → EDBD 23:07 → M ED INP 05-25 03:41 → EEVIPCON 05-25 03:41 → M MSPAV 05-25 17:30
PROVIDERS: ADMIT Student in an Organized Health Care Education/Training Program; ATTEND Internal Medicine Nephrology
DX: U07.1 COVID-19 (principal); J96.21 Acute and chronic respiratory failure with hypoxia; I50.33 Acute on chronic diastolic (congestive) heart failure; I27.20 Pulmonary hypertension, unspecified; Z68.43 Body mass index [BMI] 50.0-59.9, adult; E66.2 Morbid (severe) obesity with alveolar hypoventilation; I11.0 Hypertensive heart disease with heart failure; E87.5 Hyperkalemia; E78.5 Hyperlipidemia, unspecified; E87.6 Hypokalemia; F32.A Depression, unspecified; F41.9 Anxiety disorder, unspecified; G25.81 Restless legs syndrome; J44.1 Chronic obstructive pulmonary disease with (acute) exacerbation; K21.9 Gastro-esophageal reflux disease without esophagitis; Z87.891 Personal history of nicotine dependence; Z79.899 Other long term (current) drug therapy